=== PATIENT | male | born 1950 | race African-American/Black ===

== ENCOUNTER 2016-09-12 14:38 | Observation (INO) | payer OTHER ==
--- NOTE | 2016-09-12 15:02 | PDOC ---
History of Present Illness - General History Source: Patient Exam Limitations: No Limitations - History of Present Illness Initial Comments: 09/12/16 16:35 The patient is a 67 year old female with a significant past medical history of HTN, vertigo, who presents to the ED s/p syncopal episode. Patient states he was eating before losing consciousness. He then awoke with no confusion and no loss of bladder control. Patient reports feeling well now but has had intermittent lightheadedness over the last week that has felt different from his vertigo. Patient denies fever, nausea, vomiting, diarrhea. Denies chest pain, SOB. Patient has had his dose of lisinopril doubled a month ago. <Tommie Bone - Last Filed: 09/12/16 16:35> <Vijaya Joe - Last Filed: 09/12/16 17:59> - General Stated Complaint: Syncope/Near Syncope Time Seen by Provider: 09/12/16 15:01 Past History <Tommie Bone - Last Filed: 09/12/16 16:35> - Past Medical History Diabetes: Yes HTN: Yes Hypercholesterolemia: Yes Thyroid Disease: Yes (HYPER PARATHYROIDISM) - Psycho/Social/Smoking Cessation Hx Anxiety: No Suicidal Ideation: No Smoking Status: Yes Smoking History: Former smoker Number of Cigarettes Smoked Daily: 0 <Vijaya Joe - Last Filed: 09/12/16 17:59> - Past Medical History Allergies/Adverse Reactions: Allergies Allergy/AdvReac Type Severity Reaction Status Date / Time No Known Allergies Allergy Verified 09/12/16 15:06 Home Medications: Ambulatory Orders Ammonium Lactate Lotion [Lac-Hydrin 12% Lotion -] 1 applic TP ASDIR 09/12/16 Aspirin [ASA -] 81 mg PO DAILY 09/12/16 Carvedilol [Coreg] 6.25 mg PO BID 09/12/16 Cholecalciferol (Vitamin D3) [Vitamin D3] 2 tab PO DAILY 09/12/16 Cinacalcet HCl [Sensipar] 60 mg PO DAILY 09/12/16 Fluticasone Prop 0.05% Nasal [Flonase -] 1 - 2 spray NS BID 09/12/16 Insulin Glargine,Hum.rec.anlog [Lantus Solostar PEN (NF)] 0 units SQ AM Insulin Lispro [Humalog] 20 unit SQ TID 09/12/16 Lisinopril [Prinivil] 20 mg PO DAILY 09/12/16 Meclizine HCl [Antivert -] 25 mg PO TID 09/12/16 Metformin HCl [Metformin HCl ER] 1,000 mg PO BID 09/12/16 Multivit-Min/FA/Lycopen/Lutein [Sentry Senior Multivit Caplet] 1 each PO DAILY 09/12/16 Polyethylene Glycol 3350 [Miralax (For Daily Use) -] 17 gm PO BID 09/12/16 Review of Systems - Review of Systems Able to Perform ROS?: Yes Comments:: 09/12/16 16:35 GENERAL/CONSTITUTIONAL: No fever or chills. No weakness. HEAD, EYES, EARS, NOSE AND THROAT: No change in vision. No ear pain or discharge. No sore throat. CARDIOVASCULAR: No chest pain or shortness of breath. RESPIRATORY: No cough, wheezing, or hemoptysis. GASTROINTESTINAL: No nausea, vomiting, diarrhea or constipation. GENITOURINARY: No dysuria, frequency, or change in urination. MUSCULOSKELETAL: No joint or muscle swelling or pain. No neck or back pain. SKIN: No rash NEUROLOGIC: + syncope. No headache, vertigo, or change in strength/sensation. ENDOCRINE: No increased thirst. No abnormal weight change. HEMATOLOGIC/LYMPHATIC: No anemia, easy bleeding, or history of blood clots. ALLERGIC/IMMUNOLOGIC: No hives or skin allergy. <Tommie Bone - Last Filed: 09/12/16 16:35> *Physical Exam - Vital Signs Last Vital Signs Temp Pulse Resp BP Pulse Ox 98.1 F 79 20 85/59 96 09/12/16 15:02 09/12/16 15:02 09/12/16 15:02 09/12/16 15:02 09/12/16 15:02 - Physical Exam Comments: 09/12/16 16:36 GENERAL: Awake, alert, and fully oriented, in no acute distress HEAD: No signs of trauma EYES: PERRLA, EOMI, sclera anicteric, conjunctiva clear ENT: Auricles normal inspection, hearing grossly normal, nares patent, oropharynx clear without exudates. Moist mucosa NECK: Normal ROM, supple, no lymphadenopathy, JVD, or masses LUNGS: Breath sounds equal, clear to auscultation bilaterally. No wheezes, and no crackles HEART: 85/53 bp. Regular rate and rhythm, normal S1 and S2, no murmurs, rubs or gallops. ABDOMEN: Soft, nontender, normoactive bowel sounds. No guarding, no rebound. No masses EXTREMITIES: Normal range of motion, no edema. No clubbing or cyanosis. No cords, erythema, or tenderness NEUROLOGICAL: Cranial nerves II through XII grossly intact. Normal speech, normal gait SKIN: Warm, Dry, normal turgor, no rashes or lesions noted. <Tommie Bone - Last Filed: 09/12/16 16:35> ED Treatment Course - LABORATORY CBC & Chemistry Diagram: 09/12/16 16:11 09/12/16 16:00 <Tommie Bone - Last Filed: 09/12/16 16:35> - LABORATORY CBC & Chemistry Diagram: 09/12/16 16:11 09/12/16 16:00 <Vijaya Joe - Last Filed: 09/12/16 17:59> Medical Decision Making - Critical Care Time Total Critical Care Time (minutes): 31 Critical Care Statement: The care of this patient involved high complexity decision making to prevent further life threatening deterioration of the patient 's condition and/or to evalute & treat vital organ system(s) failure or risk of failure. - Medical Decision Making 09/12/16 17:37 Pt presents to the ED after syncope. Found to be hypotensive into the 60's on arrival of EMS. In the ED, BP 80's/50's. Patient is awake and oriented and denies complaints except for mild lightheadness. Not tachycardic or febrile. Concern for sepsis. Labs show elevated lactate. Blood pressure improved after IV hydration. Will treat with broad spectrum antibiotics and admit for sepsis. <Vijaya Joe - Last Filed: 09/12/16 17:59> *DC/Admit/Observation/Transfer - Attestations Scribe Attestion: 09/12/16 16:37 Documentation prepared by Tommie Bone, acting as medical research assistant for Vijaya Joe MD, MD. <Tommie Bone - Last Filed: 09/12/16 16:35> <Vijaya Joe - Last Filed: 09/12/16 17:59> - Referrals Referrals: Danielle Luna MD [Primary Care Provider] -
[2016-09-12 15:19] VITALS: BMI 32.5
[2016-09-12 16:54] LABS: BASOPHIL 0.7 % (0-2.0); EOSINOPHIL 1.6 % (0-4.5); MCH 22.5 pg (25.7-33.7); MCHC 30.8 g/dl (32.0-35.9); MEAN CELL VOLUME 73.1 fl (80-96); MEAN PLT VOLUME 8.9 fl (7.5-11.1); NEUTROPHILS 68.8 % (42.8-82.8); RDW 14.9 % (11.9-15.9); WHITE BLOOD COUNT 7.2 K/mm3 (4.0-10.0)
[2016-09-12 17:02] LABS: ALBUMIN 3.7 g/dl (3.4-5.0); ANION GAP 11 (8-16); CALCIUM 9.5 mg/dL (8.5-10.1); CO2 27 mmol/L (21-32); GLUCOSE,RANDOM 108 mg/dL (74-106)
[2016-09-12 17:10] LABS: THYROID STIMULATING HORMONE 1.59 uIU/ml (0.358-3.74)
[2016-09-12 17:15] LABS: ALK PHOS 64 U/L (45-117); BILIRUBIN,TOTAL 0.5 mg/dL (0.2-1.0); COCKROFT - GAULT 57.29; CREATININE 1.9 mg/dL (0.7-1.3); SGOT/AST 17 U/L (15-37); SGPT/ALT 25 U/L (12-78); TOT PROT 7.1 g/dl (6.4-8.2); TROPONIN I < 0.02 ng/ml (0.00-0.05)
[2016-09-12] MEDS ORDERED: VANCOMYCIN 1,000 MG in DEXTROSE 5%-WATER - 250 ML IVPB ONE (17:35)
[2016-09-12] MEDS ORDERED: PIPERACILLIN/TAZOB 3.375 GM 3.375 GM in DEXTROSE 5%-WATER - 50 ML IVPB ONE (17:35)
[2016-09-12] MEDS ORDERED: PIPERACILLIN/TAZOB 3.375 GM 50 ML IVPB ONE (17:45)
[2016-09-12] MEDS ORDERED: VANCOMYCIN 1 GRAM (PRE-DOCKED) 250 ML IVPB ONE (17:46)
[2016-09-12] MEDS ORDERED: SODIUM CHLORIDE 0.9% 1000 ML INFUS.BAG IV ONE (17:53)
[2016-09-12 19:04] LABS: URINE APPEARANCE CLEAR; URINE BILIRUBIN NEGATIVE (NEGATIVE); URINE BLOOD NEGATIVE (NEGATIVE); URINE COLOR YELLOW; URINE GLUCOSE (UA) NEGATIVE (NEGATIVE); URINE KETONE NEGATIVE (NEGATIVE); URINE LEUK ESTERASE NEGATIVE (NEGATIVE); URINE NITRITE NEGATIVE (NEGATIVE); URINE UROBILINOGEN NEGATIVE E.U./dl (0.2-1.0)
[2016-09-12 19:12] LABS: URINE PROTEIN 1+ (NEGATIVE)
[2016-09-12 19:16] LABS: URINE HYALINE CAST 6 /lpf; URINE MUCUS RARE; URINE RBC 1 /hpf (0-3); URINE WBC 2 /hpf (3-5)
[2016-09-12 20:19] LABS: PLATELET COUNT 250 K/MM3 (134-434)
[2016-09-12 20:20] LABS: ANISOCYTOSIS 1+; HYPOCHROMIA OCC; PLATELET ESTIMATE ADEQUATE (NORMAL); POLYCHROMASIA RARE
--- NOTE | 2016-09-12 22:14 | HP ---
Admitting History and Physical - Primary Care Physician PCP: Toby Rogers - Admission History of Present Illness: The patient is a 67 year old female with a significant past medical history of HTN, vertigo, who presents to the ED s/p syncopal episode. Patient states he was eating before losing consciousness. He then awoke with no confusion and no loss of bladder control. Patient reports feeling well now but has had intermittent lightheadedness over the last week that has felt different from his vertigo. 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 Cardiovascular: Yes: HTN - Smoking History Smoking history: Former smoker Have you smoked in the past 12 months: No Aproximately how many cigarettes per day: 0 - Alcohol/Substance Use Hx Alcohol Use: No Home Medications - Allergies Allergies/Adverse Reactions: Allergies Allergy/AdvReac Type Severity Reaction Status Date / Time No Known Allergies Allergy Verified 09/12/16 15:06 - Home Medications Home Medications: Ambulatory Orders Ammonium Lactate Lotion [Lac-Hydrin 12] 1 applic TP ASDIR 09/12/16 Aspirin [ASA -] 81 mg PO DAILY 09/12/16 Carvedilol [Coreg] 6.25 mg PO BID 09/12/16 Cholecalciferol (Vitamin D3) [Vitamin D3] 2 tab PO DAILY 09/12/16 Cinacalcet HCl [Sensipar] 60 mg PO DAILY 09/12/16 Fluticasone Prop 0.05% Nasal [Flonase -] 1 - 2 spray NS BID 09/12/16 Insulin Glargine,Hum.rec.anlog [Lantus Solostar PEN -] 55 units SQ AM 09/12/16 Insulin Lispro [Humalog Kwikpen U-100] 20 unit SQ TID 09/12/16 Lisinopril [Prinivil] 20 mg PO DAILY 09/12/16 Meclizine HCl [Antivert -] 25 mg PO TID 09/12/16 Metformin HCl [Metformin HCl ER] 1,000 mg PO BID 09/12/16 Multivit-Min/FA/Lycopen/Lutein [Sentry Senior Multivit Caplet] 1 each PO DAILY 09/12/16 Polyethylene Glycol 3350 [Miralax 119 gm Btl -] 17 gm PO BID 09/12/16 Review of Systems - Review of Systems Constitutional: denies: No Symptoms, Chills, Diaphoresis, Fever, Lethargy, Loss of Appetite, Malaise, Night Sweats, Unintentional Wgt. Loss, Weakness, Other Eyes: denies: No Symptoms, Blind Spots, Blurred Vision, Double Vision, Eye Pain , Floaters, Photophobia, Recent Change in Vision, Other HENT: denies: No Symptoms, Difficult Swallowing, Ear Discharge, Ear Pain, Epistaxis, Gingival Bleeding, Hearing Loss, Mouth Swelling, Nasal Congestion, Ocular Prosthesis, Throat Pain, Toothache, Ringing in Ears, Other Neck: denies: No Symptoms, Decreased ROM, Lumps, Pain on Movement, Stiffness, Swollen Glands, Tenderness, Other Cardiovascular: denies: No Symptoms, Chest Pain, Edema, Palpitations, Shortness of Breath, Other Respiratory: denies: No Symptoms, Cough, Exercise Intolerance, Hemoptysis, Orthopnea, PND, Snoring, SOB, SOB on Exertion, Wheezing, Other Gastrointestinal: denies: No Symptoms, Abdominal Pain, Bloating, Constipation, Diarrhea, Dysphagia, Indigestion, Melena, Nausea, Rectal Bleeding, Vomiting, Vomiting Blood, Other Genitourinary: denies: No Symptoms, Burning, Discharge, Dysuria, Flank Pain, Frequency, Hematuria, Incontinence, Lesions, Menses, Pain, Testicular Mass, Testicular Pain, Testicular Swelling, Urgency, Vaginal Bleeding, Other Neurological: reports: Syncope Physical Examination Vital Signs: Vital Signs Temperature 98.1 F 09/12/16 15:02 Pulse Rate 76 09/12/16 21:30 Respiratory Rate 18 09/12/16 21:30 Blood Pressure 112/64 09/12/16 21:30 O2 Sat by Pulse Oximetry (%) 96 09/12/16 21:30 Constitutional: Yes: No Distress HENT: Yes: Atraumatic Neck: Yes: Supple Cardiovascular: Yes: Regular Rate and Rhythm Respiratory: Yes: CTA Bilaterally Gastrointestinal: Yes: Normal Bowel Sounds Extremities: Yes: WNL Neurological: Yes: Alert, Oriented Problem List - Problems (1) Syncope Assessment/Plan: doing well monitor on tele cardiology consult cradiac profile and troponin Code(s): R55 - SYNCOPE AND COLLAPSE (2) Peripheral vertigo Assessment/Plan: on meclizine going on for sometime as per patient Code(s): H81.399 - OTHER PERIPHERAL VERTIGO, UNSPECIFIED EAR (3) Diabetes Assessment/Plan: bgms insulin Code(s): E11.9 - TYPE 2 DIABETES MELLITUS WITHOUT COMPLICATIONS (4) HTN (hypertension) Assessment/Plan: on meds Code(s): I10 - ESSENTIAL (PRIMARY) HYPERTENSION Assessment/Plan Laboratory Tests 09/12/16 09/12/16 09/12/16 16:00 16:00 16:00 WBC RBC Hgb Hct MCV MCHC RDW Plt Count MPV Neutrophils % Lymphocytes % Monocytes % Eosinophils % Basophils % Differential Comment Platelet Estimate Polychromasia Hypochromic-Microcytic Anisocytosis Macrocytosis Sodium 139 Potassium 4.6 Chloride 101 Carbon Dioxide 27 Anion Gap 11 BUN 21 H D Creatinine 1.9 H D Creat Clearance w eGFR 35.43 Random Glucose 108 H D Lactic Acid 4.6 H* Calcium 9.5 Total Bilirubin 0.5 AST 17 ALT 25 Alkaline Phosphatase 64 Creatine Kinase 469 H D Creatine Kinase Index 0.9 CK-MB (CK-2) 4.334 H CK-MB (CK-2) Rel Index Cancelled Troponin I < 0.02 Total Protein 7.1 Albumin 3.7 TSH 1.59 Urine Color Urine Appearance Urine pH Urine Protein Urine Glucose (UA) Urine Ketones Urine Blood Urine Nitrite Urine Bilirubin Urine Urobilinogen Ur Leukocyte Esterase Urine RBC Urine WBC Ur Epithelial Cells Hyaline Casts Urine Mucus 09/12/16 09/12/16 09/12/16 16:11 19:09 20:13 WBC 7.2 RBC 5.22 Hgb 11.7 Hct 38.1 MCV 73.1 L MCHC 30.8 L RDW 14.9 Plt Count 250 D MPV 8.9 D Neutrophils % 68.8 D Lymphocytes % 20.0 D Monocytes % 8.9 Eosinophils % 1.6 Basophils % 0.7 Differential Comment Slide scanned Platelet Estimate Adequate Polychromasia Rare Hypochromic-Microcytic Occ Anisocytosis 1+ Macrocytosis Occ Sodium Potassium Chloride Carbon Dioxide Anion Gap BUN Creatinine Creat Clearance w eGFR Random Glucose Lactic Acid 2.7 H* Calcium Total Bilirubin AST ALT Alkaline Phosphatase Creatine Kinase Creatine Kinase Index CK-MB (CK-2) CK-MB (CK-2) Rel Index Troponin I Total Protein Albumin TSH Urine Color Yellow Urine Appearance Clear Urine pH 5.0 Urine Protein 1+ H Urine Glucose (UA) Negative Urine Ketones Negative Urine Blood Negative Urine Nitrite Negative Urine Bilirubin Negative Urine Urobilinogen Negative Ur Leukocyte Esterase Negative Urine RBC 1 Urine WBC 2 Ur Epithelial Cells Rare Hyaline Casts 6 Urine Mucus Rare
[2016-09-12 23:38] LABS: TROPONIN I < 0.02 ng/ml (0.00-0.05)
[2016-09-13 07:46] LABS: BASOPHIL 0.7 % (0-2.0); EOSINOPHIL 3.1 % (0-4.5); MCH 22.8 pg (25.7-33.7); MCHC 31.5 g/dl (32.0-35.9); MEAN CELL VOLUME 72.4 fl (80-96); NEUTROPHILS 56.8 % (42.8-82.8); PLATELET COUNT 235 K/MM3 (134-434); RDW 15.2 % (11.9-15.9); WHITE BLOOD COUNT 6.1 K/mm3 (4.0-10.0)
[2016-09-13 08:08] LABS: ALBUMIN 3.4 g/dl (3.4-5.0); CALCIUM 9.3 mg/dL (8.5-10.1)
[2016-09-13 08:12] LABS: BILIRUBIN,TOTAL 0.6 mg/dL (0.2-1.0); COCKROFT - GAULT 72.57; CREATININE 1.5 mg/dL (0.7-1.3); TOT PROT 6.8 g/dl (6.4-8.2); TROPONIN I < 0.02 ng/ml (0.00-0.05)
--- NOTE | 2016-09-13 09:23 | PN ---
Progress Note (short form) - Note Progress Note: Chief Complaint: Events noted, notes reviewed, syncope preceded by hypoglycemia , profuse diaphoresis and nausea, denies any chest pain or dyspnea History of Present Illness: Seen and examined on telemetry. Full consult dictated - Current Medication List Current Medications Aspirin (Asa -) 81 mg PO DAILY GEORGINA Carvedilol (Coreg -) 6.25 mg PO BID GEORGINA Review of Systems Cardiovascular: As noted above Respiratory: denies: Cough or Sputum Production Gastrointestinal: denies: Vomiting, Diarrhea, Constipation or Abdominal Discomfort Musculoskeletal: No Symptoms Reported Endocrine: Diabetes Mellitus - Objective Vital Signs: Last Vital Signs Temp Pulse Resp BP Pulse Ox 98.1 F 72 20 137/94 100 09/13/16 08:08 09/13/16 08:08 09/13/16 08:08 09/13/16 08:08 09/12/16 22:14 HEENT: ROZ, EOMI Unicteric Sclera Neck: Supple Negative JVD Cardiovascular: S1 S2 Regular Rate and Rhythm Grade 1-2/6 STEFFEN Respiratory: Clear to A&P Gastrointestinal: Soft Benign Normal Bowel Sounds Ext: Negative Edema Intact Distal Pulses Labs: Troponin, BNP 09/12/16 09/12/16 09/13/16 16:00 22:40 05:38 Troponin I < 0.02 < 0.02 < 0.02 CBC, BMP 09/13/16 05:38 09/13/16 05:38 Hepatic Panel Total Bilirubin 0.6 mg/dL (0.2-1.0) 09/13/16 05:38 AST 18 U/L (15-37) 09/13/16 05:38 ALT 25 U/L (12-78) 09/13/16 05:38 Alkaline Phosphatase 64 U/L (45-117) 09/13/16 05:38 Albumin 3.4 g/dl (3.4-5.0) 09/13/16 05:38 Assessment/Plan ASSESSMENT: 1. Clinical presentation is consistent with vaso-vagal syncope, unlikely to be neuro-cardiogenic syncope 2. CAD angina pectoris 3. Diastolic LV dysfunction with class 0-I NYHA classification LV failure 4. HTN 5. DM 6. Hypercholesterolemia 7. History of Hyperparathyroidism 8. CKD with Hyperkalemia 9. History of benign positional vertigo PLAN: 1. Continue Coreg 2. Resume Lisinopril with caution and close monitoring of renal function 3. Continue ASA 4. Echocardiography to evaluate LV function, if LV EF is normal additional testing can be performed as outpatient including MPI study Katalina Valdez MD
[2016-09-13] MEDS: CARVEDILOL 6.25 MG TABLET (FP) PO SCH ×2 (10:24→21:38)
[2016-09-13] MEDS: ASPIRIN 81 MG CHEWABLE TABLETS PO SCH (10:24)
--- NOTE | 2016-09-13 11:46 | EKG ---
Test Reason : Blood Pressure : / mmHG Vent. Rate : 076 BPM Atrial Rate : 076 BPM P-R Int : 178 ms QRS Dur : 088 ms QT Int : 362 ms P-R-T Axes : 031 -29 006 degrees QTc Int : 407 ms NORMAL SINUS RHYTHM MINIMAL VOLTAGE CRITERIA FOR LVH, MAY BE NORMAL VARIANT BORDERLINE ECG WHEN COMPARED WITH ECG OF 23-JUN-2012 17:25, NO SIGNIFICANT CHANGE WAS FOUND Confirmed by NURIA VILLALBA, JASON ([id number]) on 09/13/2016 11:46:27 AM Referred By: Confirmed By:JASON QUIÑONES MD
--- NOTE | 2016-09-13 16:34 | CONS ---
DATE OF CONSULTATION: 09/13/2016 CONSULTATION REQUESTED BY: Leonard Rogers MD CHIEF COMPLAINT: Syncopal episode, cardiovascular evaluation. A 66-year-old obese male of descent, with known history of coronary artery disease, angina pectoris, diastolic left ventricular dysfunction with class 0 [place] Heart Association classification left ventricular failure, hypertensive cardiovascular disease, diabetes mellitus, hypercholesterolemia, hyperparathyroidism, post parathyroid gland resection, who presented to [facility] with a syncopal episode. Patient stated that he was hypoglycemic, and upon ingestion of 2 glasses or orange juice, he developed transient nausea with profuse diaphoresis and subsequently he lost consciousness. Patient did not report any preceding palpitations. Patient does not report any prior history of cardiac arrhythmia or syncope. Patient denies any recent chest discomfort. Patient denies any dyspnea, orthopnea, paroxysmal nocturnal dyspnea, or peripheral edema. Patient denies any fatigue or tiredness. PAST MEDICAL HISTORY: Coronary artery disease, angina pectoris, diastolic left ventricular dysfunction with class 0 [place] Heart Association classification left ventricular failure, hypertensive cardiovascular disease, diabetes mellitus, hypercholesterolemia, hyperparathyroidism, post parathyroid gland resection, orthopedic procedures post fall/trauma. SOCIAL HISTORY: Prior history of tobacco abuse. FAMILY HISTORY: Positive coronary artery disease. ALLERGIES: None reported. MEDICAL THERAPY: Magnesium citrate, insulin, lisinopril 20 mg once a day, Sensipar 600 mg once a day, multivitamin 1 tablet once a day, Ecotrin 81 mg once a day, Coreg 6.25 mg twice a day, vitamin D 2000 international units once a day, Flonase 1 puff in each nostril twice a day, meclizine 25 mg 3 times a day as needed for benign positional vertigo, metformin 1000 mg twice a day, MiraLax 17 g once a day as needed. REVIEW OF SYSTEMS: Head and Neck: Denies headache, photophobia, blurring of vision. Respiratory: No cough or sputum production. Cardiovascular: As noted above. Gastrointestinal: Reported transient nausea. Denied vomiting, diarrhea, constipation, or abdominal discomfort. Musculoskeletal: No symptoms reported. Genitourinary: No symptoms reported. PHYSICAL EXAMINATION: Vital Signs: Blood pressure is 137/94 mmHg. Pulse rate is 72 beats per minute. Temperature 98.1. Head and Neck: Pupils equal, react to light and accommodation. Extraocular muscles intact. Anicteric sclerae. Negative JVD. No bruit appreciated. Chest: Clear to auscultation and percussion. Cardiovascular: S1, S2 regular. Grade 1 to 2/6 systolic ejection murmur. No clicks or gallops. Abdomen: Soft, benign. Normoactive bowel sound. Extremities: Negative edema. Intact distal pulses. No calf tenderness. Electrocardiogram reveals sinus rhythm with increased voltage, minor right-sided conduction delay with early transition, and nonspecific T-wave abnormality. CPK, troponin I level were noted. CBC reveals a white cell count of 6.1, hemoglobin of 12.3, platelet count 235. Basic metabolic profile revealed sodium 141, potassium 5.2, BUN 20, creatinine 1.5, glucose 102. ASSESSMENT: 1. Clinical presentation is consistent with vasovagal syncope, unlikely to be neurocardiogenic syncope. 2. Coronary artery disease, angina pectoris, stable. 3. Diastolic left ventricular dysfunction with chronic class 0 to 1 [place] Heart Association classification left ventricular failure. 4. Hypertensive cardiovascular disease. 5. Diabetes mellitus. 6. Hypercholesterolemia. 7. History of hyperparathyroidism. 8. Chronic kidney disease with hyperkalemia. 9. History of benign positional vertigo. PLAN: 1. Continuation of Coreg. 2. Resumption of lisinopril with caution and close monitoring of renal function. 3. Continuation of aspirin. 4. Echocardiography for evaluation of left ventricular size and function, and if LVEF is normal, additional testing can be performed outpatient basis including myocardial perfusion imaging study. Thank you for the kind referral. JASON QUIÑONES M.D. [id number]
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
--- NOTE | 2016-09-13 18:43 | DS ---
Physical Examination Vital Signs: Vital Signs Temperature 97.8 F 09/13/16 15:09 Pulse Rate 70 09/13/16 15:09 Respiratory Rate 18 09/13/16 15:09 Blood Pressure 128/92 09/13/16 15:09 O2 Sat by Pulse Oximetry (%) 100 09/13/16 08:00 Constitutional: Yes: No Distress HENT: Yes: Atraumatic Neck: Yes: Supple Cardiovascular: Yes: Regular Rate and Rhythm Respiratory: Yes: CTA Bilaterally Gastrointestinal: Yes: Normal Bowel Sounds Extremities: Yes: WNL Neurological: Yes: Alert, Oriented Labs: CBC, BMP 09/13/16 05:38 09/13/16 05:38 Discharge Summary Reason For Visit: Syncope Current Active Problems Diabetes (Acute) HTN (hypertension) (Acute) Peripheral vertigo (Acute) Syncope (Acute) - Instructions Diet, Activity, Other Instructions: see nerologist as out pt Referrals: Katalina Valdez MD [Staff Physician] - Phillip Shah DO [Staff Physician] - Danielle Luna MD [Primary Care Provider] - - Home Medications Comprehensive Discharge Medication List: Ambulatory Orders Ammonium Lactate Lotion [Lac-Hydrin 12] 1 applic TP ASDIR 09/12/16 Aspirin [ASA -] 81 mg PO DAILY 09/12/16 Carvedilol [Coreg] 6.25 mg PO BID 09/12/16 Cholecalciferol (Vitamin D3) [Vitamin D3] 2 tab PO DAILY 09/12/16 Cinacalcet HCl [Sensipar] 60 mg PO DAILY 09/12/16 Fluticasone Prop 0.05% Nasal [Flonase -] 1 - 2 spray NS BID 09/12/16 Insulin Glargine,Hum.rec.anlog [Lantus Solostar PEN -] 55 units SQ AM 09/12/16 Insulin Lispro [Humalog Kwikpen U-100] 20 unit SQ TID 09/12/16 Lisinopril [Prinivil] 20 mg PO DAILY 09/12/16 Meclizine HCl [Antivert -] 25 mg PO TID 09/12/16 Metformin HCl [Metformin HCl ER] 1,000 mg PO BID 09/12/16 Multivit-Min/FA/Lycopen/Lutein [Sentry Senior Multivit Caplet] 1 each PO DAILY 09/12/16 Polyethylene Glycol 3350 [Miralax 119 gm Btl -] 17 gm PO BID 09/12/16 dc home fu pmd, cardiology, neuro as out pt
[2016-09-13] MEDS: LISINOPRIL 10 MG TABLET (FP) PO SCH (22:08)
[2016-09-13 22:31] LABS: TROPONIN I < 0.02 ng/ml (0.00-0.05)
[2016-09-14] MEDS ORDERED: LISINOPRIL 10 MG TABLET (FP) PO PRN ×2 (00:19)
[2016-09-14 08:56] LABS: MCH 22.7 pg (25.7-33.7); MCHC 31.4 g/dl (32.0-35.9); MEAN CELL VOLUME 72.1 fl (80-96); MEAN PLT VOLUME 8.5 fl (7.5-11.1); PLATELET COUNT 240 K/MM3 (134-434); WHITE BLOOD COUNT 5.4 K/mm3 (4.0-10.0)
[2016-09-14 09:03] VITALS: BP 134/89; PULSE 82; TEMP 98.1
[2016-09-14 09:20] LABS: ALBUMIN 3.5 g/dl (3.4-5.0); CALCIUM 9.9 mg/dL (8.5-10.1); COCKROFT - GAULT 84.9; CREATININE 1.3 mg/dL (0.7-1.3)
[2016-09-14 09:22] LABS: BILIRUBIN,TOTAL 0.5 mg/dL (0.2-1.0)
[2016-09-14] MEDS: LISINOPRIL 10 MG TABLET (FP) PO SCH (10:00)
[2016-09-14] MEDS: ASPIRIN 81 MG CHEWABLE TABLETS PO SCH (10:01)
[2016-09-14] MEDS: CARVEDILOL 6.25 MG TABLET (FP) PO SCH (10:01)
--- NOTE | 2016-09-14 11:49 | PN ---
Progress Note, Physician History of Present Illness: No further near or true syncope. - Current Medication List Current Medications: Active Medications Aspirin (Asa -) 81 mg PO DAILY [facility] Last Admin: 09/14/16 10:01 Dose: 81 mg Carvedilol (Coreg -) 6.25 mg PO BID [facility] Last Admin: 09/14/16 10:01 Dose: 6.25 mg Lisinopril (Prinivil) 10 mg PO DAILY [facility] Last Admin: 09/14/16 10:00 Dose: 10 mg - Objective Vital Signs: Vital Signs Temperature 98.1 F 09/14/16 08:59 Pulse Rate 82 09/14/16 08:59 Respiratory Rate 20 09/14/16 08:59 Blood Pressure 134/89 09/14/16 08:59 O2 Sat by Pulse Oximetry (%) 100 09/14/16 08:59 Constitutional: Yes: No Distress, Calm Neck: Yes: Supple Cardiovascular: Yes: Regular Rate and Rhythm Respiratory: Yes: Regular, CTA Bilaterally Gastrointestinal: Yes: Normal Bowel Sounds, Soft Edema: No Labs: CBC, BMP 09/14/16 08:30 09/14/16 08:30 - ....Imaging EKG: Report Reviewed (Tele: SR no pauses) Problem List - Problems (1) Diabetes Code(s): E11.9 - TYPE 2 DIABETES MELLITUS WITHOUT COMPLICATIONS Qualifiers: Diabetes mellitus type: type 2 Chronic kidney disease stage: stage 2 ( mild) (2) HTN (hypertension) Code(s): I10 - ESSENTIAL (PRIMARY) HYPERTENSION Qualifiers: Hypertension type: essential hypertension Qualified Code(s): I10 - Essential (primary) hypertension (3) Syncope Code(s): R55 - SYNCOPE AND COLLAPSE Qualifiers: Syncope type: vasovagal syncope Qualified Code(s): R55 - Syncope and collapse (4) Diastolic dysfunction Code(s): I51.9 - HEART DISEASE, UNSPECIFIED Assessment/Plan 09/13/2016 Echo: Normal LV size and fxn, mild TR, abnl LV compliance, RVSP 40-50 mmHg 1. Clinical presentation is consistent with vasovagal syncope 2. CAD angina pectoris 3. Diastolic LV dysfunction with class 0-I NYHA classification LV failure 4. HTN 5. DM 6. Hypercholesterolemia 7. History of Hyperparathyroidism 8. Acute on CKD with Hyperkalemia improving 9. History of benign positional vertigo PLAN: 1. Continue Coreg 6.25 bid, Lisinopril 10 qd and ASA 81 qd 2. May be d/siddhartha with additional testing to be performed as outpatient including MPI study
--- NOTE | 2016-09-14 14:31 | DS ---
Physical Examination Vital Signs: Vital Signs Temperature 98.1 F 09/14/16 08:59 Pulse Rate 82 09/14/16 08:59 Respiratory Rate 20 09/14/16 08:59 Blood Pressure 134/89 09/14/16 08:59 O2 Sat by Pulse Oximetry (%) 100 09/14/16 08:59 Labs: CBC, BMP 09/14/16 08:30 09/14/16 08:30 Discharge Summary Reason For Visit: Syncope Current Active Problems Diabetes (Acute) Diastolic dysfunction (Acute) HTN (hypertension) (Acute) Peripheral vertigo (Acute) Syncope (Acute) - Instructions Diet, Activity, Other Instructions: see neurologist as out pt monitor renal function see logistics technician will hold home Referrals: Katalina Valdez MD [Staff Physician] - Phillip Shah DO [Staff Physician] - Danielle Luna MD [Primary Care Provider] - Disposition: ASSISTED LIVING FACILITY - Home Medications Comprehensive Discharge Medication List: Ambulatory Orders Ammonium Lactate Lotion [Lac-Hydrin 12] 1 applic TP ASDIR 09/12/16 Aspirin [ASA -] 81 mg PO DAILY 09/12/16 Carvedilol [Coreg] 6.25 mg PO BID 09/12/16 Cholecalciferol (Vitamin D3) [Vitamin D3] 2 tab PO DAILY 09/12/16 Cinacalcet HCl [Sensipar] 60 mg PO DAILY 09/12/16 Fluticasone Prop 0.05% Nasal [Flonase -] 1 - 2 spray NS BID 09/12/16 Insulin Glargine,Hum.rec.anlog [Lantus Solostar PEN -] 55 units SQ AM 09/12/16 Insulin Lispro [Humalog Kwikpen U-100] 20 unit SQ TID 09/12/16 Meclizine HCl [Antivert -] 25 mg PO TID 09/12/16 Metformin HCl [Metformin HCl ER] 1,000 mg PO BID 09/12/16 Multivit-Min/FA/Lycopen/Lutein [Sent Senior Multivit Caplet] 1 each PO DAILY 09/12/16 Polyethylene Glycol 3350 [Miralax 119 gm Btl -] 17 gm PO BID 09/12/16 lisinopril 10 mg po daily
== END 2016-09-14 11:55 ==
LOC: JER 14:38 → JERBED 20:08 → INTOOBSV 20:08 → UNDOADMOB 20:08 → J4W 21:46 → JERBED 21:46 → EDBD 22:14 → J4W 22:14
PROVIDERS: ADMIT Internal Medicine; ATTEND Internal Medicine
DX: R55 Syncope and collapse (principal); H81.399 Other peripheral vertigo, unspecified ear; E11.9 Type 2 diabetes mellitus without complications; I10 Essential (primary) hypertension; Z79.4 Long term (current) use of insulin; Z79.82 Long term (current) use of aspirin; Z79.84 Long term (current) use of oral hypoglycemic drugs; Z87.891 Personal history of nicotine dependence; I25.119 Atherosclerotic heart disease of native coronary artery with unspecified angina pectoris; E78.00 Pure hypercholesterolemia, unspecified; I51.9 Heart disease, unspecified
CPT/HCPCS: 36415; 71010-TC; 80053; 81003; 81015; 82550; 82553; 83605; 84443; 84484; 85025; 85027; 87040; 87086; 93005; 93010; 93306-TC; 99285-25; G0378

== ENCOUNTER 2018-11-01 23:28 | Inpatient (IN) | payer OTHER ==
--- NOTE | 2018-11-02 00:25 | PDOC ---
Documentation entered by Donna Ornelas SCRIBE, acting as scribe for Karina Sifuentes DO. Karina Sifuentes DO: This documentation has been prepared by the Johnson handley Adrianna, SCRIBE, under my direction and personally reviewed by me in its entirety. I confirm that the documentation accurately reflects all work, treatment, procedures, and medical decision making performed by me. Attending Attestation - Resident Resident Name: YasminemannieMarv - ED Attending Attestation I have performed the following: I have examined & evaluated the patient, The case was reviewed & discussed with the resident, I agree w/resident's findings & plan, Exceptions are as noted - HPI HPI: The patient is a 68 year old male, with a significant PMH of DM, HTN, vertigo, HLD, hyperparathyroid, and CVD, who presents to the ED BIBEMS from the [facility] for evaluation s/p fall. As per Residential note, patient fell earlier today. Patient denies falling, but admits to drinking 5 beers and 4 shots earlier today. He reports that he was arguing with the people at his home and they saw that his BP was low so they brought him here. Patient has no complaints while in the ED. Denies pain, headache, blurry vision, changes in vision, changes in sensation, numbness or tingling. Allergies: Zocor Surgical History: Thyroidectomy Social History: PCP: Dr. Simmons - Physicial Exam PE: Constitutional: Awake, alert, oriented. No acute distress. Head: Normocephalic. Atraumatic. Eyes: PERRL. EOMI. Conjunctivae are not pale. ENT: Mucous membranes are moist and intact. Posterior pharynx without exudates or erythema. Uvula midline. Neck: Supple. Full ROM. No lymphadenopathy. Cardiovascular: Regular rate. Regular rhythm. S1, S2 regular. Distal pulses are 2+ and symmetric. Pulmonary/Chest: No evidence of respiratory distress. Clear to auscultation bilaterally No wheezing, rales or rhonchi. Abdominal: Soft and nondistended. There is no tenderness. No rebound, guarding or rigidity. No organomegaly. No palpable masses. Good bowel sounds. Back: No CVA tenderness. Musculoskeletal: No edema. No cyanosis. No clubbing. Full range of motion in all extremities. No calf tenderness. Radial/pedal pulses are intact and 2+ bilaterally Skin: Skin is warm and dry. No petechiae. No purpura. Neurological: Alert and oriented to person, place, and time. Cranial nerves II -XII are grossly intact. Normal speech. Strength is grossly symmetric. No sensory deficits. Psychiatric: Good eye contact. Normal interaction, affect and behavior. - Medical Decision Making 11/02/18 00:21 I, Dr. Karina Sifuentes, DO, attest that this document has been prepared under my direction and personally reviewed by me in its entirety. I further attest, that it accurately reflects all work, treatment, procedures and medical decision -making performed by me. 11/02/18 00:22 a/p: 68yo male sent in from his [facility] for eval of etoh use and poss fall -pt denies falling, but admits to etoh use -no external signs of trauma -pt denies all complaints of pain -neuro intact -will send labs, head ct for poss fall on etoh, ekg -most likely dc back to [facility] 11/02/18 01:[address] neg hypercalcemia [place] etoh intox pmd dr. simmons will need admission 11/02/18 01:24 tortuous aorta no acute pna on cxr 11/02/18 01:27 pt updated and willing to stay for further eval 11/02/18 01:[address] marquez who accepts pt to service under Faye Burks *DC/Admit/Observation/Transfer Diagnosis at time of Disposition: Hypercalcemia, [place] (acute kidney injury), Alcohol intoxication - Discharge Dispostion Condition at time of disposition: Guarded Decision to Admit order: Yes - Referrals - Patient Instructions - Post Discharge Activity Heart Score/ECG Review - ECG Intrepretation Comment:: 11/02/18 00:35 sinus at 88, nl axis, nl interval, no acute st findings, t wave flattening diffusely ED Treatment Course - LABORATORY CBC & Chemistry Diagram: 11/02/18 00:30 11/02/18 00:30 - ADDITIONAL ORDERS Additional order review: Laboratory Results 11/02/18 11/02/18 11/02/18 00:30 00:30 00:30 PTT (Actin FS) Sodium 134 L Potassium 5.1 Chloride 103 Carbon Dioxide 20 L Anion Gap 11 BUN 44.0 H Creatinine 3.0 H Est GFR (CKD-EPI)AfAm 23.48 Est GFR (CKD-EPI)NonAf 20.26 Random Glucose 171 H Calcium 11.5 H Total Bilirubin 0.3 AST 20 ALT 29 Alkaline Phosphatase 60 Creatine Kinase 527 H Troponin I < 0.02 Total Protein 7.5 Albumin 4.1 Alcohol, Quantitative 184.3 H 11/02/18 00:30 PTT (Actin FS) 34.6 Sodium Potassium Chloride Carbon Dioxide Anion Gap BUN Creatinine Est GFR (CKD-EPI)AfAm Est GFR (CKD-EPI)NonAf Random Glucose Calcium Total Bilirubin AST ALT Alkaline Phosphatase Creatine Kinase Troponin I Total Protein Albumin Alcohol, Quantitative 11/02/18 00:30 RBC 5.00 MCV 71.9 L MCHC 32.5 RDW 15.9 MPV 9.0 Neutrophils % 64.8 Lymphocytes % 25.9 Monocytes % 7.0 Eosinophils % 1.9 Basophils % 0.4 - RADIOLOGY Radiograph Interpretation: EXAM: HEAD CT WITHOUT CONTRAST HISTORY: Headache FINDINGS: 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 No visible acute infarct. Involutional changes. No hemorrhage. Osseous structures are intact. Retention cysts/polyps in the maxillary sinuses. Reported by: Ravinder Smith MD 11/02/2018 01:09 EST
[2018-11-02 00:51] LABS: BASO % 0.4 % (0-2.0); EOS % 1.9 % (0-4.5); HEMOGLOBIN 11.7 GM/dL (11.7-16.9); LYMPH % 25.9 % (8-40); MCH 23.3 pg (25.7-33.7); MCHC 32.5 g/dl (32.0-35.9); MEAN CELL VOLUME 71.9 fl (80-96); NEUT % 64.8 % (42.8-82.8); PLATELET COUNT 200 K/MM3 (134-434); RDW 15.9 % (11.9-15.9); WHITE BLOOD COUNT 7.1 K/mm3 (4.0-10.0)
--- NOTE | 2018-11-02 00:52 | PDOC ---
History of Present Illness - General Chief Complaint: Injury Stated Complaint: INTOX Time Seen by Provider: 11/01/18 23:54 History Source: Patient Exam Limitations: No Limitations Past History - Past Medical History Allergies/Adverse Reactions: Allergies Allergy/AdvReac Type Severity Reaction Status Date / Time No Known Allergies Allergy Verified 09/12/16 15:06 Home Medications: Ambulatory Orders Ammonium Lactate Lotion [Lac-Hydrin 12] 1 applic TP ASDIR 09/12/16 Aspirin [ASA -] 81 mg PO DAILY 09/12/16 Carvedilol [Coreg] 6.25 mg PO BID 09/12/16 Cholecalciferol (Vitamin D3) [Vitamin D3] 2 tab PO DAILY 09/12/16 Cinacalcet HCl [Sensipar] 60 mg PO DAILY 09/12/16 Fluticasone Prop 0.05% Nasal [Flonase -] 1 - 2 spray NS BID 09/12/16 Insulin Glargine,Hum.rec.anlog [Lantus Solostar PEN -] 55 units SQ AM 09/12/16 Insulin Lispro [Humalog Kwikpen U-100] 20 unit SQ TID 09/12/16 Meclizine HCl [Antivert -] 25 mg PO TID 09/12/16 Multivit-Min/FA/Lycopen/Lutein [Sentry Senior Multivit Caplet] 1 each PO DAILY 09/12/16 Polyethylene Glycol 3350 [Miralax 119 gm Btl -] 17 gm PO BID 09/12/16 metFORMIN HCL [Metformin ER Osmotic] 1,000 mg PO BID 09/12/16 Lisinopril 10 mg PO DAILY #30 tablet 09/14/16 Anemia: No CVA: Yes Diabetes: Yes HTN: Yes Hypercholesterolemia: Yes Thyroid Disease: Yes (HYPER PARATHYROIDISM) - Suicide/Smoking/Psychosocial Hx Smoking Status: Yes Smoking History: Unknown if ever smoked Have you smoked in the past 12 months: No Number of Cigarettes Smoked Daily: 0 If you are a former smoker, when did you quit?: years Cigars Per Day: 0 Information on smoking cessation initiated: No Hx Alcohol Use: Yes Drug/Substance Use Hx: No (unknown) Substance Use Type: None *Physical Exam - Vital Signs Last Vital Signs Temp Pulse Resp BP Pulse Ox 97.8 F 87 18 93/66 97 11/01/18 23:46 11/02/18 00:29 11/02/18 00:29 11/02/18 00:29 11/01/18 23:46 ED Treatment Course - LABORATORY CBC & Chemistry Diagram: 11/02/18 00:30 11/02/18 00:30
[2018-11-02 01:12] LABS: ALBUMIN 4.1 g/dl (3.4-5.0); BILIRUBIN,TOTAL 0.3 mg/dL (0.2-1); CALCIUM 11.5 mg/dL (8.5-10.1); POTASSIUM 5.1 mmol/L (3.5-5.1); TOT PROT 7.5 g/dl (6.4-8.2)
[2018-11-02 01:17] LABS: INR 1.04 (0.83-1.09); PROTHROMBIN TIME (PATIENT) 12.3 SEC (9.7-13.0)
[2018-11-02] MEDS ORDERED: SODIUM CHLORIDE 0.9% 1000 ML INFUS.BAG IV ONE (01:20)
[2018-11-02] MEDS ORDERED: THIAMINE HCL 100 MG TABLET (FP) PO ONE (01:21)
[2018-11-02] MEDS ORDERED: FOLIC ACID 1 MG TABLET (FP) PO ONE (01:21)
--- NOTE | 2018-11-02 01:43 | HP ---
CHIEF COMPLAINT: fall PCP: [place] HISTORY OF PRESENT ILLNESS: 68 year old male BIBEMS from the [facility] for evaluation s/p fall on 11/01. Patient was found to be intoxicated in ER, stated that EMS was summoned, found that his BP was low and was brought in. ER course was notable for: (1) cxr (2) head ct (3) Recent Travel: no PAST MEDICAL HISTORY:DM, HTN, vertigo, HLD, hyperparathyroidism PAST SURGICAL HISTORY: Thyroidectomy Social History: Smoking: quit -2008 Alcohol: yes- social, denied chronic Drugs: denied Family History: Allergies No Known Allergies Allergy (Verified 09/12/16 15:06) HOME MEDICATIONS: Home Medications Medication Instructions Recorded Ammonium Lactate Lotion 1 applic TP ASDIR 09/12/16 [Lac-Hydrin 12] Aspirin [ASA -] 81 mg PO DAILY 09/12/16 Carvedilol [Coreg] 6.25 mg PO BID 09/12/16 Cholecalciferol (Vitamin D3) 2 tab PO DAILY 09/12/16 [Vitamin D3] Cinacalcet HCl [Sensipar] 60 mg PO DAILY 09/12/16 Fluticasone Prop 0.05% Nasal 1 - 2 spray NS BID 09/12/16 [Flonase -] Insulin Glargine,Hum.rec.anlog 55 units SQ AM 09/12/16 [Lantus Solostar PEN -] Insulin Lispro [Humalog Kwikpen 20 unit SQ TID 09/12/16 U-100] Meclizine HCl [Antivert -] 25 mg PO TID 09/12/16 Multivit-Min/FA/Lycopen/Lutein 1 each PO DAILY 09/12/16 [Sentry Senior Multivit Caplet] Polyethylene Glycol 3350 [Miralax 17 gm PO BID 09/12/16 119 gm Btl -] metFORMIN HCL [Metformin ER 1,000 mg PO BID 09/12/16 Osmotic] Lisinopril 10 mg PO DAILY #30 tablet 09/14/16 REVIEW OF SYSTEMS CONSTITUTIONAL: Absent: fever, chills, diaphoresis, generalized weakness, malaise, loss of appetite, weight change HEENT: Absent: rhinorrhea, nasal congestion, throat pain, throat swelling, difficulty swallowing, mouth swelling, ear pain, eye pain, visual changes CARDIOVASCULAR: Absent: chest pain, syncope, palpitations, irregular heart rate, lightheadedness , peripheral edema RESPIRATORY: Absent: cough, shortness of breath, dyspnea with exertion, orthopnea, wheezing, stridor, hemoptysis GASTROINTESTINAL: Absent: abdominal pain, abdominal distension, nausea, vomiting, diarrhea, constipation, melena, hematochezia GENITOURINARY: Absent: dysuria, frequency, urgency, hesitancy, hematuria, flank pain, genital pain MUSCULOSKELETAL: Absent: myalgia, arthralgia, joint swelling, back pain, neck pain SKIN: Absent: rash, itching, pallor HEMATOLOGIC/IMMUNOLOGIC: Absent: easy bleeding, easy bruising, lymphadenopathy, frequent infections ENDOCRINE: Absent: unexplained weight gain, unexplained weight loss, heat intolerance, cold intolerance NEUROLOGIC: Absent: headache, focal weakness or paresthesias, dizziness, unsteady gait, seizure, mental status changes, bladder or bowel incontinence PSYCHIATRIC: Absent: anxiety, depression, suicidal or homicidal ideation, hallucinations. PHYSICAL EXAMINATION Vital Signs - 24 hr 11/01/18 11/02/18 23:46 00:29 Temperature 97.8 F Pulse Rate 91 H Pulse Rate [ 87 Left] Respiratory 18 18 Rate Blood Pressure 103/69 Blood Pressure 93/66 [Right] O2 Sat by Pulse 97 Oximetry (%) GENERAL: Awake, alert, and fully oriented, in no acute distress. HEAD: Normal with no signs of trauma. EYES: Pupils equal, round and reactive to light, extraocular movements intact, sclera anicteric, conjunctiva clear. No lid lag. EARS, NOSE, THROAT: Ears normal, nares patent, oropharynx clear without exudates. Moist mucous membranes. NECK: Normal range of motion, supple without lymphadenopathy, JVD, or masses. LUNGS: Breath sounds equal, clear to auscultation bilaterally. No wheezes, and no crackles. No accessory muscle use. HEART: Regular rate and rhythm, normal S1 and S2 without murmur, rub or gallop. ABDOMEN: Soft, obese, nontender, not distended, normoactive bowel sounds, no guarding, no rebound, no masses. MUSCULOSKELETAL: Normal range of motion at all joints. No bony deformities or tenderness. No CVA tenderness. UPPER EXTREMITIES: 2+ pulses, warm, well-perfused. No cyanosis. No clubbing. No peripheral edema. LOWER EXTREMITIES: 2+ pulses, warm, well-perfused. No calf tenderness. No peripheral edema. NEUROLOGICAL: Cranial nerves II-XII intact. Normal speech. Normal gait. PSYCHIATRIC: Cooperative. Good eye contact. Appropriate mood and affect. SKIN: Warm, dry, normal turgor, no rashes or lesions noted, normal capillary refill. Laboratory Results - last 24 hr 11/02/18 11/02/18 11/02/18 00:30 00:30 00:30 WBC RBC Hgb Hct MCV MCH MCHC RDW Plt Count MPV Absolute Neuts (auto) Neutrophils % Lymphocytes % Monocytes % Eosinophils % Basophils % Nucleated RBC % PT with INR INR PTT (Actin FS) 34.6 Sodium Potassium Chloride Carbon Dioxide Anion Gap BUN Creatinine Est GFR (CKD-EPI)AfAm Est GFR (CKD-EPI)NonAf Random Glucose Calcium Total Bilirubin AST ALT Alkaline Phosphatase Creatine Kinase 527 H Troponin I < 0.02 Total Protein Albumin Alcohol, Quantitative 184.3 H 11/02/18 11/02/18 11/02/18 00:30 00:30 00:30 WBC 7.1 RBC 5.00 Hgb 11.7 Hct 36.0 MCV 71.9 L MCH 23.3 L MCHC 32.5 RDW 15.9 Plt Count 200 MPV 9.0 Absolute Neuts (auto) 4.6 Neutrophils % 64.8 Lymphocytes % 25.9 Monocytes % 7.0 Eosinophils % 1.9 Basophils % 0.4 Nucleated RBC % 0 PT with INR 12.30 INR 1.04 PTT (Actin FS) Sodium 134 L Potassium 5.1 Chloride 103 Carbon Dioxide 20 L Anion Gap 11 BUN 44.0 H Creatinine 3.0 H Est GFR (CKD-EPI)AfAm 23.48 Est GFR (CKD-EPI)NonAf 20.26 Random Glucose 171 H Calcium 11.5 H Total Bilirubin 0.3 AST 20 ALT 29 Alkaline Phosphatase 60 Creatine Kinase Troponin I Total Protein 7.5 Albumin 4.1 Alcohol, Quantitative Imaging studies reviewed head ct - 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 No visible acute infarct. Involutional changes. No hemorrhage. Osseous structures are intact. Retention cysts/polyps in the maxillary sinuses ASSESSMENT/PLAN: #Mechanical fall- no evidence of trauma on physical exam, head ct was wnl. Fall probably from etoh intoxication -med/surg -bed rest -fall precautions -check orhtostatics -ekg #[place] -i/o -daily wieghts -avoid nephrotoxins -renal u/s #Hypercalcemia - likely secondary to underlying hyperparathyroidism -IV fluid hydration -on sensipar home med -obtain old records #DM -insulin sliding scale -lantus 55 units qhs #Alcoholism- uncertain if chronic abuse- patient denied -CIWA -IV fluid hydration -banana bag -thiamine -folate -mv -urine toxicology #dvt ppx - heparin sc Visit type - Emergency Visit Emergency Visit: Yes ED Registration Date: 11/02/18 Care time: The patient presented to the Emergency Department on the above date and was hospitalized for further evaluation of their emergent condition. - New Patient This patient is new to me today: Yes Date on this admission: 11/02/18 - Critical Care Critical Care patient: No
[2018-11-02] MEDS ORDERED: FOLIC ACID INJECTION - 1 MG, THIAMINE HCL 100 MG, MULTIVIT INJECTION ADULT 10 ML in SOD... IVPB ONE (01:59)
[2018-11-02] MEDS ORDERED: THIAMINE HCL 100 MG TABLET (FP) ONE (02:01)
[2018-11-02] MEDS ORDERED: FOLIC ACID 1 MG TABLET (FP) ONE (02:01)
[2018-11-02] MEDS ORDERED: LORazepam 2 MG/ML SDV VIAL IVPUSH PRN (02:21)
[2018-11-02 05:35] VITALS: BMI 30.4
[2018-11-02] MEDS: MECLIZINE HCL 25 MG TABLET (FP) PO SCH ×4 (06:32→22:53)
[2018-11-02] MEDS: SODIUM CHLORIDE 1,000 ML IV SCH (06:32)
[2018-11-02] MEDS: INSULIN SLIDING SCALE (NOVOLOG) 1 VIAL SQ SCH ×4 (06:33→22:51)
[2018-11-02] MEDS: INSULIN (LEVEMIR) 100 UNITS/ML UNITS SQ SCH (06:57)
[2018-11-02] MEDS ORDERED: INSULIN GLARGINE HUM REC ANLOG 55 UNIT SQ SCH (07:00)
[2018-11-02] MEDS ORDERED: PT OWN MED DRAWER 7, Y5N ONE (07:02)
[2018-11-02] MEDS ORDERED: CINACALCET HCL 60 MG PO SCH (10:00)
[2018-11-02] MEDS ORDERED: [UNRECOGNIZED DRUG - OTHER] PO SCH (10:00)
[2018-11-02] MEDS ORDERED: CHOLECALCIFEROL PO SCH (10:00)
[2018-11-02] MEDS: LISINOPRIL 10 MG TABLET (FP) PO SCH (10:36)
[2018-11-02] MEDS: ASPIRIN 81 MG CHEWABLE TABLETS PO SCH (10:37)
[2018-11-02] MEDS: THIAMINE HCL 100 MG TABLET (FP) PO SCH (10:37)
[2018-11-02] MEDS: FOLIC ACID 1 MG TABLET (FP) PO SCH (10:37)
[2018-11-02] MEDS: CARVEDILOL 6.25 MG TABLET (FP) PO SCH ×2 (10:37→22:51)
[2018-11-02] MEDS: HEPARIN NA (PORCINE) 5,000 UNITS/ML 1ML VIAL SQ SCH ×2 (10:38→22:51)
[2018-11-02] MEDS: CINACALCET HCL 30 MG TAB (FP) PO SCH ×2 (11:48→12:20)
--- NOTE | 2018-11-02 11:58 | EKG ---
Test Reason : Blood Pressure : / mmHG Vent. Rate : 088 BPM Atrial Rate : 088 BPM P-R Int : 166 ms QRS Dur : 080 ms QT Int : 330 ms P-R-T Axes : 027 -07 044 degrees QTc Int : 399 ms NORMAL SINUS RHYTHM NORMAL ECG WHEN COMPARED WITH ECG OF 12-SEP-2016 15:27, NO SIGNIFICANT CHANGE WAS FOUND Confirmed by JOB CAMARILLO MD ([id number]) on 11/02/2018 11:58:42 AM Referred By: Confirmed By:JOB CAMARILLO MD
--- NOTE | 2018-11-02 13:22 | PN ---
Progress Note (short form) - Note Progress Note: drowsy, no complaints Tells me he drinks beer socially Yesterday he had 3 beers Vital Signs - 24 hr 11/01/18 11/01/18 11/02/18 23:45 23:46 00:29 Temperature 98 F 97.8 F Pulse Rate 91 H Pulse Rate [ 97 H 87 Left] Respiratory 18 18 18 Rate Blood Pressure 103/69 Blood Pressure 125/92 93/66 [Right] O2 Sat by Pulse 100 97 Oximetry (%) 11/02/18 11/02/18 11/02/18 02:49 05:19 07:48 Temperature 97.8 F 97.5 F L Pulse Rate 96 H 107 H Pulse Rate [ Left] Respiratory 18 19 Rate Blood Pressure 134/82 111/73 Blood Pressure [Right] O2 Sat by Pulse 100 99 Oximetry (%) 11/02/18 09:00 Temperature Pulse Rate Pulse Rate [ Left] Respiratory 19 Rate Blood Pressure Blood Pressure [Right] O2 Sat by Pulse 96 Oximetry (%) Current Medications Generic Name Dose Route Start Last Admin Trade Name Marekq PRN Reason Stop Dose Admin Aspirin 81 mg 11/02/18 10:00 11/02/18 10:37 Asa - PO 81 mg DAILY [facility] Administration Carvedilol 6.25 mg 11/02/18 10:00 11/02/18 10:37 Coreg - PO 6.25 mg BID [facility] Administration Cinacalcet 60 mg 11/02/18 10:00 11/02/18 12:20 Sensipar - PO Not Given DAILY [facility] Folic Acid 1 mg 11/02/18 10:00 11/02/18 10:37 Folic Acid - PO 1 mg DAILY [facility] Administration Heparin Sodium (Porcine) 5,000 unit 11/02/18 10:00 11/02/18 10:38 Heparin - SQ 5,000 unit BID [facility] Administration Sodium Chloride 1,000 mls @ 75 mls/hr 11/02/18 01:45 11/02/18 06:32 Normal Saline - IV 75 mls/hr ASDIR [facility] Administration Insulin Aspart 1 vial 11/02/18 07:00 11/02/18 12:21 Novolog Vial Sliding Scale - SQ 2 units ACHS [facility] Administration Protocol Insulin Detemir 55 units 11/02/18 07:00 11/02/18 06:57 Levemir Vial SQ 55 units AM [facility] Administration Lisinopril 10 mg 07/26/19 10:00 11/02/18 10:36 Prinivil PO Not Given DAILY [facility] Lorazepam 2 mg 11/02/18 02:21 11/02/18 06:35 Ativan Injection - IVPUSH 2 mg TID PRN Administration ANXIETY Meclizine HCl 25 mg 11/02/18 06:00 11/02/18 06:32 Antivert - PO 25 mg TID [facility] Administration Non-Formulary Medication 2 tab 11/02/18 10:00 Cholecalciferol (Vitamin D3) [Vitamin D3] PO DAILY [facility] Non-Formulary Medication 1 each 11/02/18 10:00 Multivit-Min/Fa/Lycopen/Lutein [Sentry Senior Multivit Caplet] PO DAILY [facility] Thiamine HCl 100 mg 11/02/18 10:00 11/02/18 10:37 Vitamin B1 - PO 100 mg DAILY [facility] Administration Laboratory Results - last 24 hr 11/02/18 11/02/18 11/02/18 00:30 00:30 00:30 WBC RBC Hgb Hct MCV MCH MCHC RDW Plt Count MPV Absolute Neuts (auto) Neutrophils % Lymphocytes % Monocytes % Eosinophils % Basophils % Nucleated RBC % PT with INR INR PTT (Actin FS) 34.6 Sodium Potassium Chloride Carbon Dioxide Anion Gap BUN Creatinine Est GFR (CKD-EPI)AfAm Est GFR (CKD-EPI)NonAf POC Glucometer Random Glucose Calcium Total Bilirubin AST ALT Alkaline Phosphatase Creatine Kinase 527 H Creatine Kinase Index 1.1 CK-MB (CK-2) 6.0 H Troponin I < 0.02 Total Protein Albumin Alcohol, Quantitative 184.3 H 11/02/18 11/02/18 11/02/18 00:30 00:30 00:30 WBC 7.1 RBC 5.00 Hgb 11.7 Hct 36.0 MCV 71.9 L MCH 23.3 L MCHC 32.5 RDW 15.9 Plt Count 200 MPV 9.0 Absolute Neuts (auto) 4.6 Neutrophils % 64.8 Lymphocytes % 25.9 Monocytes % 7.0 Eosinophils % 1.9 Basophils % 0.4 Nucleated RBC % 0 PT with INR 12.30 INR 1.04 PTT (Actin FS) Sodium 134 L Potassium 5.1 Chloride 103 Carbon Dioxide 20 L Anion Gap 11 BUN 44.0 H Creatinine 3.0 H Est GFR (CKD-EPI)AfAm 23.48 Est GFR (CKD-EPI)NonAf 20.26 POC Glucometer Random Glucose 171 H Calcium 11.5 H Total Bilirubin 0.3 AST 20 ALT 29 Alkaline Phosphatase 60 Creatine Kinase Creatine Kinase Index CK-MB (CK-2) Troponin I Total Protein 7.5 Albumin 4.1 Alcohol, Quantitative 11/02/18 11/02/18 06:01 12:03 WBC RBC Hgb Hct MCV MCH MCHC RDW Plt Count MPV Absolute Neuts (auto) Neutrophils % Lymphocytes % Monocytes % Eosinophils % Basophils % Nucleated RBC % PT with INR INR PTT (Actin FS) Sodium Potassium Chloride Carbon Dioxide Anion Gap BUN Creatinine Est GFR (CKD-EPI)AfAm Est GFR (CKD-EPI)NonAf POC Glucometer 122 187 Random Glucose Calcium Total Bilirubin AST ALT Alkaline Phosphatase Creatine Kinase Creatine Kinase Index CK-MB (CK-2) Troponin I Total Protein Albumin Alcohol, Quantitative Heart sounds regular Lungs clear Abdomen soft, obese Nontender No edema Plan IV fluids Monitor renal function Ativan as needed for withdrawal symptoms Check ultrasound kidneys and urinary bladder Problem List - Problems (1) Alcohol intoxication Code(s): F10.929 - ALCOHOL USE, UNSPECIFIED WITH INTOXICATION, UNSPECIFIED (2) Hypercalcemia Code(s): E83.52 - HYPERCALCEMIA (3) Diabetes Code(s): E11.9 - TYPE 2 DIABETES MELLITUS WITHOUT COMPLICATIONS Qualifiers: Diabetes mellitus type: type 2 Chronic kidney disease stage: stage 2 (mild )
--- NOTE | 2018-11-02 16:02 | CONSULT ---
Consult Consult Specialty:: Nephrology Reason for Consultation:: [place] - History of Present Illness Chief Complaint: sent in after a fall History of Present Illness: Pt is a 68 year old male with pmhx of dm, htn, prostate cancer, hld, vertigo, and cad who presented to the er after a fall. He was found to have elevated creatinine and I was walled to evaluate him. He denies shortness of breath. he denies dysuria or hematuria. He was drinking heavily yesterday before he fell. He was also found to have hypotension. He denies nsaid use. 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 Cardio/Vascular: Yes: HTN Heme/Onc: Yes: Other (prostate cancer) - Alcohol/Substance Use Hx Alcohol Use: Yes - Smoking History Smoking history: Unknown if ever smoked Have you smoked in the past 12 months: No Aproximately how many cigarettes per day: 0 If you are a former smoker, when did you quit?: years Home Medications - Allergies Allergies/Adverse Reactions: Allergies Allergy/AdvReac Type Severity Reaction Status Date / Time No Known Allergies Allergy Verified 09/12/16 15:06 - Home Medications Home Medications: Ambulatory Orders Ammonium Lactate Lotion [Lac-Hydrin 12] 1 applic TP ASDIR 09/12/16 Aspirin [ASA -] 81 mg PO DAILY 09/12/16 Carvedilol [Coreg] 6.25 mg PO BID 09/12/16 Cholecalciferol (Vitamin D3) [Vitamin D3] 2 tab PO DAILY 09/12/16 Cinacalcet HCl [Sensipar] 60 mg PO DAILY 09/12/16 Fluticasone Prop 0.05% Nasal [Flonase -] 1 - 2 spray NS BID 09/12/16 Insulin Glargine,Hum.rec.anlog [Lantus Solostar PEN -] 55 units SQ AM 09/12/16 Insulin Lispro [Humalog Kwikpen U-100] 20 unit SQ TID 09/12/16 Meclizine HCl [Antivert -] 25 mg PO TID 09/12/16 Multivit-Min/FA/Lycopen/Lutein [Sent Senior Multivit Caplet] 1 each PO DAILY 09/12/16 Polyethylene Glycol 3350 [Miralax 119 gm Btl -] 17 gm PO BID 09/12/16 metFORMIN HCL [Metformin ER Osmotic] 1,000 mg PO BID 09/12/16 Lisinopril 10 mg PO DAILY #30 tablet 09/14/16 Family Disease History - Family Disease History Family History: Denies Review of Systems - Review of Systems Constitutional: reports: No Symptoms Eyes: reports: No Symptoms HENT: reports: No Symptoms Neck: reports: No Symptoms Cardiovascular: reports: No Symptoms Respiratory: reports: No Symptoms Gastrointestinal: reports: No Symptoms Genitourinary: reports: No Symptoms Musculoskeletal: reports: No Symptoms Integumentary: reports: No Symptoms Neurological: reports: No Symptoms Endocrine: reports: No Symptoms Hematology/Lymphatic: reports: No Symptoms Psychiatric: reports: No Symptoms Physical Exam Vital Signs: Vital Signs Temperature 97.5 F L 11/02/18 07:48 Pulse Rate 107 H 11/02/18 07:48 Respiratory Rate 19 11/02/18 09:00 Blood Pressure 111/73 11/02/18 07:48 O2 Sat by Pulse Oximetry (%) 96 11/02/18 09:00 Constitutional: Yes: Calm Eyes: Yes: Conjunctiva Clear HENT: Yes: Atraumatic Neck: Yes: Supple Cardiovascular: Yes: S1, S2 Respiratory: Yes: CTA Bilaterally Gastrointestinal: Yes: Soft Renal/: Yes: WNL Musculoskeletal: Yes: WNL Edema: No Neurological: Yes: Oriented Psychiatric: Yes: Oriented Labs: CBC, BMP 11/02/18 00:30 11/02/18 00:30 Imaging - Results Chest X-ray: Report Reviewed Ultrasound: Report Reviewed Problem List - Problems (1) [place] (acute kidney injury) Code(s): N17.9 - ACUTE KIDNEY FAILURE, UNSPECIFIED (2) Alcohol intoxication Code(s): F10.929 - ALCOHOL USE, UNSPECIFIED WITH INTOXICATION, UNSPECIFIED Assessment/Plan Current Medications Generic Name Dose Route Start Last Admin Trade Name Freq PRN Reason Stop Dose Admin Aspirin 81 mg 11/02/18 10:00 11/02/18 10:37 Asa - PO 81 mg DAILY [facility] Administration Carvedilol 6.25 mg 11/02/18 10:00 11/02/18 10:37 Coreg - PO 6.25 mg BID [facility] Administration Cinacalcet 60 mg 11/02/18 10:00 11/02/18 12:20 Sensipar - PO Not Given DAILY [facility] Folic Acid 1 mg 11/02/18 10:00 11/02/18 10:37 Folic Acid - PO 1 mg DAILY [facility] Administration Heparin Sodium (Porcine) 5,000 unit 11/02/18 10:00 11/02/18 10:38 Heparin - SQ 5,000 unit BID [facility] Administration Sodium Chloride 1,000 mls @ 75 mls/hr 11/02/18 01:45 11/02/18 06:32 Normal Saline - IV 75 mls/hr ASDIR [facility] Administration Insulin Aspart 1 vial 11/02/18 07:00 11/02/18 12:21 Novolog Vial Sliding Scale - SQ 2 units ACHS [facility] Administration Protocol Insulin Detemir 55 units 11/02/18 07:00 11/02/18 06:57 Levemir Vial SQ 55 units AM [facility] Administration Lisinopril 10 mg 11/02/18 10:00 11/02/18 10:36 Prinivil PO Not Given DAILY [facility] Lorazepam 2 mg 11/02/18 02:21 11/02/18 06:35 Ativan Injection - IVPUSH 2 mg TID PRN Administration ANXIETY Meclizine HCl 25 mg 11/02/18 06:00 11/02/18 14:36 Antivert - PO Not Given TID [facility] Non-Formulary Medication 2 tab 11/02/18 10:00 Cholecalciferol (Vitamin D3) [Vitamin D3] PO DAILY [facility] Non-Formulary Medication 1 each 11/02/18 10:00 Multivit-Min/Fa/Lycopen/Lutein [Sentry Senior Multivit Caplet] PO DAILY [facility] Thiamine HCl 100 mg 11/02/18 10:00 11/02/18 10:37 Vitamin B1 - PO 100 mg DAILY [facility] Administration Laboratory Tests 09/14/16 11/02/18 11/02/18 08:30 00:30 00:30 Sodium Potassium BUN Creatinine 1.3 Calcium Creatine Kinase 527 H Alcohol, Quantitative 184.3 H 11/02/18 00:30 Sodium 134 L Potassium 5.1 BUN 44.0 H Creatinine 3.0 H Calcium 11.5 H Creatine Kinase Alcohol, Quantitative Impression 1. [place] 2. hyperparathyroidism 3. htn 4. elevated pvr 5. prostate cancer 6. etoh abuse 7. s/p fall Plan - cont with fluids - repeat labs in am - repeat bladder scan tomorrow - monitor bp and if it stays stable will start flomax
[2018-11-02] MEDS ORDERED: INSULIN (NOVOLOG) ASPART 100 UNITS/ML 10ML VIAL ONE (16:27)
[2018-11-03] MEDS: MECLIZINE HCL 25 MG TABLET (FP) PO SCH ×3 (07:09→21:49)
[2018-11-03] MEDS: INSULIN SLIDING SCALE (NOVOLOG) 1 VIAL SQ SCH ×4 (07:09→21:53)
[2018-11-03] MEDS: INSULIN (LEVEMIR) 100 UNITS/ML UNITS SQ SCH (07:09)
[2018-11-03 08:26] LABS: BASO % 1.1 % (0-2.0); EOS % 5.8 % (0-4.5); HEMATOCRIT 36.3 % (35.4-49); HEMOGLOBIN 11.8 GM/dL (11.7-16.9); LYMPH % 42.4 % (8-40); MCH 23.4 pg (25.7-33.7); MCHC 32.4 g/dl (32.0-35.9); MEAN CELL VOLUME 72.2 fl (80-96); MEAN PLT VOLUME 9.1 fl (7.5-11.1); MONO % 8.6 % (3.8-10.2); NEUT % 42.1 % (42.8-82.8); PLATELET COUNT 188 K/MM3 (134-434); RBC 5.03 M/mm3 (4.00-5.60); RDW 16.1 % (11.9-15.9); WHITE BLOOD COUNT 4.7 K/mm3 (4.0-10.0)
[2018-11-03 08:39] LABS: ALBUMIN 3.6 g/dl (3.4-5.0); BILIRUBIN,TOTAL 0.5 mg/dL (0.2-1); BLOOD UREA NITROGEN 26.9 mg/dL (7-18); CALCIUM 11.2 mg/dL (8.5-10.1); CREATININE 1.4 mg/dL (0.55-1.3); POTASSIUM 5.7 mmol/L (3.5-5.1); TOT PROT 6.9 g/dl (6.4-8.2)
[2018-11-03] MEDS ORDERED: PT OWN MED DRAWER 7, Y5N ONE (09:05)
[2018-11-03] MEDS: LISINOPRIL 10 MG TABLET (FP) PO SCH (09:22)
[2018-11-03] MEDS: THIAMINE HCL 100 MG TABLET (FP) PO SCH (09:22)
[2018-11-03] MEDS: FOLIC ACID 1 MG TABLET (FP) PO SCH (09:22)
[2018-11-03] MEDS: ASPIRIN 81 MG CHEWABLE TABLETS PO SCH (09:22)
[2018-11-03] MEDS: CINACALCET HCL 30 MG TAB (FP) PO SCH (09:22)
[2018-11-03] MEDS: CARVEDILOL 6.25 MG TABLET (FP) PO SCH ×2 (09:31→21:49)
[2018-11-03] MEDS: HEPARIN NA (PORCINE) 5,000 UNITS/ML 1ML VIAL SQ SCH ×2 (10:33→21:51)
--- NOTE | 2018-11-03 12:17 | PN ---
Progress Note, Physician History of Present Illness: 68 year old male BIBEMS from the [facility] for evaluation s/p fall on 11/01. Patient was found to be intoxicated in ER, stated that EMS was summoned, found that his BP was low and was brought in. Pt is relatively better No SOB - Current Medication List Current Medications: Active Medications Aspirin (Asa -) 81 mg PO DAILY [facility] Last Admin: 11/03/18 09:22 Dose: 81 mg Carvedilol (Coreg -) 6.25 mg PO BID [facility] Last Admin: 11/03/18 09:31 Dose: 6.25 mg Cinacalcet (Sensipar -) 60 mg PO DAILY [facility] Last Admin: 11/03/18 09:22 Dose: 60 mg Folic Acid (Folic Acid -) 1 mg PO DAILY [facility] Last Admin: 11/03/18 09:22 Dose: 1 mg Heparin Sodium (Porcine) (Heparin -) 5,000 unit SQ BID [facility] Last Admin: 11/03/18 10:33 Dose: 5,000 unit Sodium Chloride (Normal Saline -) 1,000 mls @ 75 mls/hr IV ASDIR [facility] Last Admin: 11/02/18 06:32 Dose: 75 mls/hr Insulin Aspart (Novolog Vial Sliding Scale -) 1 vial SQ ACHS [facility]; Protocol Last Admin: 11/03/18 11:34 Dose: Not Given Insulin Detemir (Levemir Vial) 55 units SQ AM [facility] Last Admin: 11/03/18 07:09 Dose: 55 units Lisinopril (Prinivil) 10 mg PO DAILY [facility] Last Admin: 11/03/18 09:22 Dose: 10 mg Lorazepam (Ativan Injection -) 2 mg IVPUSH TID PRN PRN Reason: ANXIETY Last Admin: 11/02/18 06:35 Dose: 2 mg Meclizine HCl (Antivert -) 25 mg PO TID [facility] Last Admin: 11/03/18 07:09 Dose: Not Given Non-Formulary Medication (Cholecalciferol (Vitamin D3) [Vitamin D3]) 2 tab PO DAILY [facility] Non-Formulary Medication (Multivit-Min/Fa/Lycopen/Lutein [Sent Senior Multivit Caplet]) 1 each PO DAILY [facility] Thiamine HCl (Vitamin B1 -) 100 mg PO DAILY [facility] Last Admin: 11/03/18 09:22 Dose: 100 mg - Objective Vital Signs: Vital Signs Temperature 98.4 F 11/03/18 06:36 Pulse Rate 80 11/03/18 06:36 Respiratory Rate 20 11/03/18 06:36 Blood Pressure 130/70 11/03/18 06:36 O2 Sat by Pulse Oximetry (%) 96 11/02/18 09:00 Constitutional: Yes: No Distress Eyes: Yes: Conjunctiva Clear, EOM Intact HENT: Yes: Atraumatic, Normocephalic Neck: Yes: Supple, Trachea Midline Cardiovascular: Yes: Regular Rate and Rhythm, S1, S2 Respiratory: Yes: Regular, CTA Bilaterally Gastrointestinal: Yes: Normal Bowel Sounds, Soft Edema: No Peripheral Pulses WNL: Yes Neurological: Yes: Alert, Oriented, Cran Nerves II-XII Intact Labs: CBC, BMP 11/03/18 07:10 11/03/18 07:10 INR, PTT INR 1.04 (0.83-1.09) 11/02/18 00:30 Problem List - Problems (1) Diabetes Code(s): E11.9 - TYPE 2 DIABETES MELLITUS WITHOUT COMPLICATIONS Qualifiers: Diabetes mellitus type: type 2 Chronic kidney disease stage: stage 2 (mild ) (2) Hypotension Code(s): I95.9 - HYPOTENSION, UNSPECIFIED Qualifiers: Hypotension type: idiopathic hypotension Qualified Code(s): I95.0 - Idiopathic hypotension (3) Peripheral vertigo Code(s): H81.399 - OTHER PERIPHERAL VERTIGO, UNSPECIFIED EAR (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CIFIED Assessment/Plan (1) Diabetes Code(s): E11.9 - TYPE 2 DIABETES MELLITUS WITHOUT COMPLICATIONS Qualifiers: Diabetes mellitus type: type 2 Chronic kidney disease stage: stage 2 (mild ) (2) Hypotension Code(s): I95.9 - HYPOTENSION, UNSPECIFIED Qualifiers: Hypotension type: idiopathic hypotension Qualified Code(s): I95.0 - Idiopathic hypotension (3) Peripheral vertigo Code(s): H81.399 - OTHER PERIPHERAL VERTIGO, UNSPECIFIED EAR (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
[2018-11-03] MEDS: SODIUM CHLORIDE 1,000 ML IV SCH (13:43)
--- NOTE | 2018-11-03 15:39 | PN ---
Progress Note, Physician History of Present Illness: Pt seen and examined at bedside. He is awake and alert. He denies shortness of breath. - Current Medication List Current Medications: Active Medications Aspirin (Asa -) 81 mg PO DAILY [facility] Last Admin: 11/03/18 09:22 Dose: 81 mg Carvedilol (Coreg -) 6.25 mg PO BID [facility] Last Admin: 11/03/18 09:31 Dose: 6.25 mg Cinacalcet (Sensipar -) 60 mg PO DAILY [facility] Last Admin: 11/03/18 09:22 Dose: 60 mg Folic Acid (Folic Acid -) 1 mg PO DAILY [facility] Last Admin: 11/03/18 09:22 Dose: 1 mg Heparin Sodium (Porcine) (Heparin -) 5,000 unit SQ BID [facility] Last Admin: 11/03/18 10:33 Dose: 5,000 unit Sodium Chloride (Normal Saline -) 1,000 mls @ 75 mls/hr IV ASDIR [facility] Last Admin: 11/03/18 13:43 Dose: 75 mls/hr Insulin Aspart (Novolog Vial Sliding Scale -) 1 vial SQ ACHS [facility]; Protocol Last Admin: 11/03/18 11:34 Dose: Not Given Insulin Detemir (Levemir Vial) 55 units SQ AM [facility] Last Admin: 11/03/18 07:09 Dose: 55 units Lisinopril (Prinivil) 10 mg PO DAILY [facility] Last Admin: 11/03/18 09:22 Dose: 10 mg Lorazepam (Ativan Injection -) 2 mg IVPUSH TID PRN PRN Reason: ANXIETY Last Admin: 11/02/18 06:35 Dose: 2 mg Meclizine HCl (Antivert -) 25 mg PO TID [facility] Last Admin: 11/03/18 13:41 Dose: 25 mg Non-Formulary Medication (Cholecalciferol (Vitamin D3) [Vitamin D3]) 2 tab PO DAILY [facility] Non-Formulary Medication (Multivit-Min/Fa/Lycopen/Lutein [Sentry Senior Multivit Caplet]) 1 each PO DAILY [facility] Thiamine HCl (Vitamin B1 -) 100 mg PO DAILY [facility] Last Admin: 11/03/18 09:22 Dose: 100 mg - Objective Vital Signs: Vital Signs Temperature 98.5 F 11/03/18 12:00 Pulse Rate 68 11/03/18 12:00 Respiratory Rate 20 11/03/18 12:00 Blood Pressure 130/88 11/03/18 12:00 O2 Sat by Pulse Oximetry (%) 99 11/03/18 09:00 Constitutional: Yes: Calm Eyes: Yes: Conjunctiva Clear HENT: Yes: Atraumatic Neck: Yes: Supple Cardiovascular: Yes: S1, S2 Respiratory: Yes: CTA Bilaterally Gastrointestinal: Yes: Soft, Abdomen, Obese Genitourinary: Yes: WNL Musculoskeletal: Yes: WNL Edema: No Neurological: Yes: Oriented Psychiatric: Yes: Oriented Labs: CBC, BMP 11/03/18 07:10 11/03/18 07:10 INR, PTT INR 1.04 (0.83-1.09) 11/02/18 00:30 Problem List - Problems (1) [place] (acute kidney injury) Code(s): N17.9 - ACUTE KIDNEY FAILURE, UNSPECIFIED (2) Alcohol intoxication Code(s): F10.929 - ALCOHOL USE, UNSPECIFIED WITH INTOXICATION, UNSPECIFIED Assessment/Plan Current Medications Generic Name Dose Route Start Last Admin Trade Name Jordan PRN Reason Stop Dose Admin Aspirin 81 mg 11/02/18 10:00 11/03/18 09:22 Asa - PO 81 mg DAILY [facility] Administration Carvedilol 6.25 mg 11/02/18 10:00 11/03/18 09:31 Coreg - PO 6.25 mg BID [facility] Administration Cinacalcet 60 mg 11/02/18 10:00 11/03/18 09:22 Sensipar - PO 60 mg DAILY [facility] Administration Folic Acid 1 mg 11/02/18 10:00 11/03/18 09:22 Folic Acid - PO 1 mg DAILY [facility] Administration Heparin Sodium (Porcine) 5,000 unit 11/02/18 10:00 11/03/18 10:33 Heparin - SQ 5,000 unit BID [facility] Administration Sodium Chloride 1,000 mls @ 75 mls/hr 11/02/18 01:45 11/03/18 13:43 Normal Saline - IV 75 mls/hr ASDIR [facility] Administration Insulin Aspart 1 vial 11/02/18 07:00 11/03/18 11:34 Novolog Vial Sliding Scale - SQ Not Given ACHS [facility] Protocol Insulin Detemir 55 units 11/02/18 07:00 11/03/18 07:09 Levemir Vial SQ 55 units AM [facility] Administration Lisinopril 10 mg 11/02/18 10:00 11/03/18 09:22 Prinivil PO 10 mg DAILY [facility] Administration Lorazepam 2 mg 11/02/18 02:21 11/02/18 06:35 Ativan Injection - IVPUSH 2 mg TID PRN Administration ANXIETY Meclizine HCl 25 mg 11/02/18 06:00 11/03/18 13:41 Antivert - PO 25 mg TID [facility] Administration Non-Formulary Medication 2 tab 11/02/18 10:00 Cholecalciferol (Vitamin D3) [Vitamin D3] PO DAILY [facility] Non-Formulary Medication 1 each 11/02/18 10:00 Multivit-Min/Fa/Lycopen/Lutein [Sentry Senior Multivit Caplet] PO DAILY [facility] Thiamine HCl 100 mg 11/02/18 10:00 11/03/18 09:22 Vitamin B1 - PO 100 mg DAILY [facility] Administration Impression 1. [place] 2. hyperparathyroidism 3. htn 4. elevated pvr 5. prostate cancer 6. etoh abuse 7. s/p fall 8. hyperkalemia Plan - change fluids to 1/2 ns - start lokelma - low potassium diet - check bladder scan - renal function is improving - stop lisinopril for now
[2018-11-03] MEDS ORDERED: SODIUM BICARBONATE 8.4% 50 MEQ/50 ML VIAL IVPB ONE (15:41)
[2018-11-03] MEDS ORDERED: SODIUM CHLORIDE 0.45% 1,000 ML IV SCH (15:45)
[2018-11-03 17:09] LABS: BLOOD UREA NITROGEN 26.5 mg/dL (7-18); CREATININE 1.7 mg/dL (0.55-1.3); POTASSIUM 5.3 mmol/L (3.5-5.1)
[2018-11-03] MEDS: SODIUM ZIRCONIUM CYCLOSILICATE (LOKELMA) 5 GM PACKET PO SCH (17:12)
[2018-11-03 18:21] LABS: URINE APPEARANCE CLEAR; URINE BILIRUBIN NEGATIVE (NEGATIVE); URINE COLOR YELLOW; URINE GLUCOSE (UA) NEGATIVE (NEGATIVE); URINE KETONE NEGATIVE (NEGATIVE); URINE LEUK ESTERASE NEGATIVE (NEGATIVE); URINE NITRITE NEGATIVE (NEGATIVE); URINE PROTEIN NEGATIVE (NEGATIVE); URINE UROBILINOGEN 0.2 mg/dL (0.2-1.0)
[2018-11-03] MEDS: TAMSULOSIN HCL 0.4 MG CAP PO SCH (20:17)
[2018-11-04] MEDS: INSULIN (LEVEMIR) 100 UNITS/ML UNITS SQ SCH (06:41)
[2018-11-04] MEDS: INSULIN SLIDING SCALE (NOVOLOG) 1 VIAL SQ SCH ×4 (06:41→21:13)
[2018-11-04] MEDS: MECLIZINE HCL 25 MG TABLET (FP) PO SCH ×3 (06:41→21:12)
[2018-11-04 08:38] LABS: ALBUMIN 3.4 g/dl (3.4-5.0); BILIRUBIN,TOTAL 0.5 mg/dL (0.2-1); CALCIUM 10.2 mg/dL (8.5-10.1); CREATININE 1.4 mg/dL (0.55-1.3); POTASSIUM 4.7 mmol/L (3.5-5.1); TOT PROT 6.4 g/dl (6.4-8.2)
[2018-11-04] MEDS: ASPIRIN 81 MG CHEWABLE TABLETS PO SCH (09:17)
[2018-11-04] MEDS: CHOLECALCIFEROL (VIT D3) 1,000 UNIT (25 MCG) TABLET PO SCH (09:18)
[2018-11-04] MEDS: FOLIC ACID 1 MG TABLET (FP) PO SCH (09:18)
[2018-11-04] MEDS: CARVEDILOL 6.25 MG TABLET (FP) PO SCH ×2 (09:18→21:12)
[2018-11-04] MEDS: MULTIVITAMINS (DAILY MVI) TABLET (FP) PO SCH (09:18)
[2018-11-04] MEDS: CINACALCET HCL 30 MG TAB (FP) PO SCH (09:19)
[2018-11-04] MEDS: THIAMINE HCL 100 MG TABLET (FP) PO SCH (09:20)
[2018-11-04] MEDS: HEPARIN NA (PORCINE) 5,000 UNITS/ML 1ML VIAL SQ SCH ×2 (09:20→21:12)
[2018-11-04] MEDS: SODIUM ZIRCONIUM CYCLOSILICATE (LOKELMA) 5 GM PACKET PO SCH (09:20)
--- NOTE | 2018-11-04 14:14 | PN ---
Progress Note, Physician History of Present Illness: Pt seen and examined at bedside. He is awake and alert. He denies shortness of breath. - Current Medication List Current Medications: Active Medications Aspirin (Asa -) 81 mg PO DAILY [facility] Last Admin: 11/04/18 09:17 Dose: 81 mg Carvedilol (Coreg -) 6.25 mg PO BID [facility] Last Admin: 11/04/18 09:18 Dose: 6.25 mg Cholecalciferol (Vitamin D3 -) 2,000 unit PO DAILY [facility] Last Admin: 11/04/18 09:18 Dose: 2,000 unit Cinacalcet (Sensipar -) 60 mg PO DAILY [facility] Last Admin: 11/04/18 09:19 Dose: 60 mg Folic Acid (Folic Acid -) 1 mg PO DAILY [facility] Last Admin: 11/04/18 09:18 Dose: 1 mg Heparin Sodium (Porcine) (Heparin -) 5,000 unit SQ BID [facility] Last Admin: 11/04/18 09:20 Dose: 5,000 unit Sodium Chloride (1/2 Normal Saline) 1,000 mls @ 50 mls/hr IV ASDIR [facility] Stop: 11/04/18 15:40 Last Admin: 11/03/18 16:34 Dose: 50 mls/hr Insulin Aspart (Novolog Vial Sliding Scale -) 1 vial SQ ACHS [facility]; Protocol Last Admin: 11/04/18 12:00 Dose: Not Given Insulin Detemir (Levemir Vial) 55 units SQ AM [facility] Last Admin: 11/04/18 06:41 Dose: 55 units Lorazepam (Ativan Injection -) 2 mg IVPUSH TID PRN PRN Reason: ANXIETY Last Admin: 11/02/18 06:35 Dose: 2 mg Meclizine HCl (Antivert -) 25 mg PO TID [facility] Last Admin: 11/04/18 13:21 Dose: Not Given Multivitamins/Minerals/Vitamin C (Tab-A-Vit -) 1 tab PO DAILY [facility] Last Admin: 11/04/18 09:18 Dose: 1 tab Sodium Zirconium Cyclosilicate (Lokelma) 10 gm PO DAILY [facility] Last Admin: 11/04/18 09:20 Dose: 10 gm Tamsulosin HCl (Flomax -) 0.4 mg PO DAILY@2100 [facility] Last Admin: 11/03/18 20:17 Dose: 0.4 mg Thiamine HCl (Vitamin B1 -) 100 mg PO DAILY [facility] Last Admin: 11/04/18 09:20 Dose: 100 mg - Objective Vital Signs: Vital Signs Temperature 97.6 F 11/04/18 09:14 Pulse Rate 68 11/04/18 09:14 Respiratory Rate 17 11/04/18 09:14 Blood Pressure 128/85 11/04/18 09:14 O2 Sat by Pulse Oximetry (%) 96 11/04/18 09:00 Constitutional: Yes: Calm Eyes: Yes: Conjunctiva Clear HENT: Yes: Atraumatic Neck: Yes: Supple Cardiovascular: Yes: S1, S2 Respiratory: Yes: CTA Bilaterally Gastrointestinal: Yes: Soft Genitourinary: Yes: WNL Musculoskeletal: Yes: WNL Edema: No Neurological: Yes: Oriented Psychiatric: Yes: Oriented Labs: CBC, BMP 11/03/18 07:10 11/04/18 07:00 INR, PTT INR 1.04 (0.83-1.09) 11/02/18 00:30 Problem List - Problems (1) [place] (acute kidney injury) Code(s): N17.9 - ACUTE KIDNEY FAILURE, UNSPECIFIED (2) Alcohol intoxication Code(s): F10.929 - ALCOHOL USE, UNSPECIFIED WITH INTOXICATION, UNSPECIFIED Assessment/Plan Current Medications Generic Name Dose Route Start Last Admin Trade Name Jordan PRN Reason Stop Dose Admin Aspirin 81 mg 11/02/18 10:00 11/04/18 09:17 Asa - PO 81 mg DAILY [facility] Administration Carvedilol 6.25 mg 11/02/18 10:00 11/04/18 09:18 Coreg - PO 6.25 mg BID [facility] Administration Cholecalciferol 2,000 unit 11/04/18 10:00 11/04/18 09:18 Vitamin D3 - PO 2,000 unit DAILY [facility] Administration Cinacalcet 60 mg 11/02/18 10:00 11/04/18 09:19 Sensipar - PO 60 mg DAILY [facility] Administration Folic Acid 1 mg 11/02/18 10:00 11/04/18 09:18 Folic Acid - PO 1 mg DAILY [facility] Administration Heparin Sodium (Porcine) 5,000 unit 11/02/18 10:00 11/04/18 09:20 Heparin - SQ 5,000 unit BID [facility] Administration Sodium Chloride 1,000 mls @ 50 mls/hr 11/03/18 15:45 11/03/18 16:34 1/2 Normal Saline IV 11/04/18 15:40 50 mls/hr ASDIR [facility] Administration Insulin Aspart 1 vial 11/02/18 07:00 11/04/18 12:00 Novolog Vial Sliding Scale - SQ Not Given ACHS [facility] Protocol Insulin Detemir 55 units 11/02/18 07:00 11/04/18 06:41 Levemir Vial SQ 55 units AM [facility] Administration Lorazepam 2 mg 11/02/18 02:21 11/02/18 06:35 Ativan Injection - IVPUSH 2 mg TID PRN Administration ANXIETY Meclizine HCl 25 mg 11/02/18 06:00 11/04/18 13:21 Antivert - PO Not Given TID [facility] Multivitamins/Minerals/Vitamin C 1 tab 11/04/18 10:00 11/04/18 09:18 Tab-A-Vit - PO 1 tab DAILY [facility] Administration Sodium Zirconium Cyclosilicate 10 gm 11/03/18 15:45 11/04/18 09:20 Lokelma PO 10 gm DAILY [facility] Administration Tamsulosin HCl 0.4 mg 11/03/18 21:00 11/03/18 20:17 Flomax - PO 0.4 mg DAILY@2100 [facility] Administration Thiamine HCl 100 mg 11/02/18 10:00 11/04/18 09:20 Vitamin B1 - PO 100 mg DAILY [facility] Administration Impression 1. [place] 2. hyperparathyroidism 3. htn 4. elevated pvr 5. prostate cancer 6. etoh abuse 7. s/p fall 8. hyperkalemia Plan - cont fluids - potassium improved - can stop lokelma - repeat labs in am - cont flomax - lisinopril on hold
--- NOTE | 2018-11-04 18:04 | PN ---
Progress Note, Physician History of Present Illness: 68 year old male BIBEMS from the [facility] for evaluation s/p fall on 11/01. Patient was found to be intoxicated in ER, stated that EMS was summoned, found that his BP was low and was brought in. Pt is relatively better No SOB NO Chest pain No abd pain - Current Medication List Current Medications: Active Medications Aspirin (Asa -) 81 mg PO DAILY [facility] Last Admin: 11/04/18 09:17 Dose: 81 mg Carvedilol (Coreg -) 6.25 mg PO BID [facility] Last Admin: 11/04/18 09:18 Dose: 6.25 mg Cholecalciferol (Vitamin D3 -) 2,000 unit PO DAILY [facility] Last Admin: 11/04/18 09:18 Dose: 2,000 unit Cinacalcet (Sensipar -) 60 mg PO DAILY [facility] Last Admin: 11/04/18 09:19 Dose: 60 mg Folic Acid (Folic Acid -) 1 mg PO DAILY [facility] Last Admin: 11/04/18 09:18 Dose: 1 mg Heparin Sodium (Porcine) (Heparin -) 5,000 unit SQ BID [facility] Last Admin: 11/04/18 09:20 Dose: 5,000 unit Insulin Aspart (Novolog Vial Sliding Scale -) 1 vial SQ ACHS [facility]; Protocol Last Admin: 11/04/18 16:45 Dose: Not Given Insulin Detemir (Levemir Vial) 55 units SQ AM [facility] Last Admin: 11/04/18 06:41 Dose: 55 units Lorazepam (Ativan Injection -) 2 mg IVPUSH TID PRN PRN Reason: ANXIETY Last Admin: 11/02/18 06:35 Dose: 2 mg Meclizine HCl (Antivert -) 25 mg PO TID [facility] Last Admin: 11/04/18 13:21 Dose: Not Given Multivitamins/Minerals/Vitamin C (Tab-A-Vit -) 1 tab PO DAILY [facility] Last Admin: 11/04/18 09:18 Dose: 1 tab Tamsulosin HCl (Flomax -) 0.4 mg PO DAILY@2100 [facility] Last Admin: 11/03/18 20:17 Dose: 0.4 mg Thiamine HCl (Vitamin B1 -) 100 mg PO DAILY [facility] Last Admin: 11/04/18 09:20 Dose: 100 mg - Objective Vital Signs: Vital Signs Temperature 97.6 F 11/04/18 09:14 Pulse Rate 68 11/04/18 09:14 Respiratory Rate 17 11/04/18 09:14 Blood Pressure 128/85 11/04/18 09:14 O2 Sat by Pulse Oximetry (%) 96 11/04/18 09:00 Constitutional: Yes: No Distress Eyes: Yes: Conjunctiva Clear, EOM Intact HENT: Yes: Atraumatic, Normocephalic Neck: Yes: Supple, Trachea Midline Cardiovascular: Yes: Regular Rate and Rhythm, S1, S2 Respiratory: Yes: Regular, CTA Bilaterally Gastrointestinal: Yes: Normal Bowel Sounds, Soft Edema: No Peripheral Pulses WNL: Yes Neurological: Yes: Alert, Oriented, Cran Nerves II-XII Intact Labs: CBC, BMP 11/03/18 07:10 11/04/18 07:00 INR, PTT INR 1.04 (0.83-1.09) 11/02/18 00:30 Problem List - Problems (1) Diabetes Code(s): E11.9 - TYPE 2 DIABETES MELLITUS WITHOUT COMPLICATIONS Qualifiers: Diabetes mellitus type: type 2 Chronic kidney disease stage: stage 2 (mild ) (2) Hypotension Code(s): I95.9 - HYPOTENSION, UNSPECIFIED Qualifiers: Hypotension type: idiopathic hypotension Qualified Code(s): I95.0 - Idiopathic hypotension (3) Peripheral vertigo Code(s): H81.399 - OTHER PERIPHERAL VERTIGO, UNSPECIFIED EAR (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CIFIED Assessment/Plan (1) Diabetes Code(s): E11.9 - TYPE 2 DIABETES MELLITUS WITHOUT COMPLICATIONS Qualifiers: Diabetes mellitus type: type 2 Chronic kidney disease stage: stage 2 (mild ) (2) Hypotension Code(s): I95.9 - HYPOTENSION, UNSPECIFIED Qualifiers: Hypotension type: idiopathic hypotension Qualified Code(s): I95.0 - Idiopathic hypotension (3) Peripheral vertigo Code(s): H81.399 - OTHER PERIPHERAL VERTIGO, UNSPECIFIED EAR (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
[2018-11-04] MEDS: TAMSULOSIN HCL 0.4 MG CAP PO SCH (20:18)
[2018-11-05] MEDS: INSULIN (LEVEMIR) 100 UNITS/ML UNITS SQ SCH (06:28)
[2018-11-05] MEDS: INSULIN SLIDING SCALE (NOVOLOG) 1 VIAL SQ SCH ×4 (06:28→22:10)
[2018-11-05] MEDS: MECLIZINE HCL 25 MG TABLET (FP) PO SCH ×3 (06:28→22:10)
[2018-11-05 07:40] LABS: BILIRUBIN,TOTAL 0.9 mg/dL (0.2-1); BLOOD UREA NITROGEN 25.9 mg/dL (7-18); CALCIUM 10.6 mg/dL (8.5-10.1); CREATININE 1.6 mg/dL (0.55-1.3); POTASSIUM 4.5 mmol/L (3.5-5.1); TOT PROT 7.7 g/dl (6.4-8.2)
[2018-11-05] MEDS: ASPIRIN 81 MG CHEWABLE TABLETS PO SCH (10:20)
[2018-11-05] MEDS: MULTIVITAMINS (DAILY MVI) TABLET (FP) PO SCH (10:20)
[2018-11-05] MEDS: FOLIC ACID 1 MG TABLET (FP) PO SCH (10:20)
[2018-11-05] MEDS: CARVEDILOL 6.25 MG TABLET (FP) PO SCH ×2 (10:20→22:10)
[2018-11-05] MEDS: CHOLECALCIFEROL (VIT D3) 1,000 UNIT (25 MCG) TABLET PO SCH (10:20)
[2018-11-05] MEDS: HEPARIN NA (PORCINE) 5,000 UNITS/ML 1ML VIAL SQ SCH ×2 (10:21→22:10)
[2018-11-05] MEDS: THIAMINE HCL 100 MG TABLET (FP) PO SCH (10:22)
[2018-11-05] MEDS: CINACALCET HCL 30 MG TAB (FP) PO SCH (10:24)
--- NOTE | 2018-11-05 10:57 | PN ---
Progress Note (short form) - Note Progress Note: pt seen/ examined chart reviewed feels better no complains Vital Signs Temp 98 F 11/05/18 06:00 Pulse 70 11/05/18 06:00 Resp 18 11/05/18 06:00 BP 122/76 11/05/18 06:00 Pulse Ox 97 11/04/18 21:00 Intake & Output 11/04/18 11/04/18 11/05/18 11:59 23:59 11:59 Intake Total 790 500 Output Total 1350 1200 1000 Balance -560 -700 -1000 Weight 226 lb 222 lb Intake: IV 550 500 1/2 Normal Saline 1,000 550 500 ml @ 50 mls/hr IV ASDIR [facility] Rx#:[id number] Oral 240 Output: Urine 1350 1200 1000 Void 1350 1200 1000 Other: Voiding Method Urinal Urinal Bowel Movement No No No Weight Measurement Method Built in Bedscale Built in Bedscale Active Medications Aspirin (Asa -) 81 mg PO DAILY [facility] Last Admin: 11/05/18 10:20 Dose: 81 mg Carvedilol (Coreg -) 6.25 mg PO BID [facility] Last Admin: 11/05/18 10:20 Dose: 6.25 mg Cholecalciferol (Vitamin D3 -) 2,000 unit PO DAILY [facility] Last Admin: 11/05/18 10:20 Dose: 2,000 unit Cinacalcet (Sensipar -) 60 mg PO DAILY [facility] Last Admin: 11/05/18 10:24 Dose: Not Given Folic Acid (Folic Acid -) 1 mg PO DAILY [facility] Last Admin: 11/05/18 10:20 Dose: 1 mg Heparin Sodium (Porcine) (Heparin -) 5,000 unit SQ BID [facility] Last Admin: 11/05/18 10:21 Dose: 5,000 unit Insulin Aspart (Novolog Vial Sliding Scale -) 1 vial SQ [facility]; Protocol Last Admin: 11/05/18 06:28 Dose: Not Given Insulin Detemir (Levemir Vial) 55 units SQ AM [facility] Last Admin: 11/05/18 06:28 Dose: 55 units Meclizine HCl (Antivert -) 25 mg PO TID [facility] Last Admin: 11/05/18 06:28 Dose: 25 mg Multivitamins/Minerals/Vitamin C (Tab-A-Vit -) 1 tab PO DAILY [facility] Last Admin: 11/05/18 10:20 Dose: 1 tab Tamsulosin HCl (Flomax -) 0.4 mg PO DAILY@2100 [facility] Last Admin: 11/04/18 20:18 Dose: 0.4 mg Thiamine HCl (Vitamin B1 -) 100 mg PO DAILY [facility] Last Admin: 11/05/18 10:22 Dose: 100 mg CBC, BMP 11/03/18 07:10 11/05/18 06:25 Physical Exam S1 S2 RRR Lungs -- clear Abd - soft, NT Ext- no edema Neuro- alert/ awake No shaking a/p better alcohol cessation counselling monitor labs daily oob - chair pt monitor today if stable- anticipate d/c tomorrow will follow Problem List - Problems (1) [place] (acute kidney injury) Code(s): N17.9 - ACUTE KIDNEY FAILURE, UNSPECIFIED (2) Alcohol intoxication Code(s): F10.929 - ALCOHOL USE, UNSPECIFIED WITH INTOXICATION, UNSPECIFIED (3) Hypercalcemia Code(s): E83.52 - HYPERCALCEMIA (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
[2018-11-05] MEDS: POLYETHYLENE GLYCOL 3350 119 GM BTL PO SCH (13:26)
--- NOTE | 2018-11-05 16:36 | PN ---
Progress Note, Physician History of Present Illness: Pt seen and examined at bedside. He is awake and alert. He denies shortness of breath. He denies dysuria. - Current Medication List Current Medications: Active Medications Aspirin (Asa -) 81 mg PO DAILY [facility] Last Admin: 11/05/18 10:20 Dose: 81 mg Carvedilol (Coreg -) 6.25 mg PO BID [facility] Last Admin: 11/05/18 10:20 Dose: 6.25 mg Cholecalciferol (Vitamin D3 -) 2,000 unit PO DAILY [facility] Last Admin: 11/05/18 10:20 Dose: 2,000 unit Cinacalcet (Sensipar -) 60 mg PO DAILY [facility] Last Admin: 11/05/18 10:24 Dose: Not Given Folic Acid (Folic Acid -) 1 mg PO DAILY [facility] Last Admin: 11/05/18 10:20 Dose: 1 mg Heparin Sodium (Porcine) (Heparin -) 5,000 unit SQ BID [facility] Last Admin: 11/05/18 10:21 Dose: 5,000 unit Insulin Aspart (Novolog Vial Sliding Scale -) 1 vial SQ ACHS [facility]; Protocol Last Admin: 11/05/18 12:04 Dose: 2 units Insulin Detemir (Levemir Vial) 55 units SQ AM [facility] Last Admin: 11/05/18 06:28 Dose: 55 units Meclizine HCl (Antivert -) 25 mg PO TID [facility] Last Admin: 11/05/18 13:27 Dose: Not Given Multivitamins/Minerals/Vitamin C (Tab-A-Vit -) 1 tab PO DAILY [facility] Last Admin: 11/05/18 10:20 Dose: 1 tab Polyethylene Glycol (Miralax (For Daily Use) -) 17 gm PO DAILY [facility] Last Admin: 11/05/18 13:26 Dose: 17 grams Tamsulosin HCl (Flomax -) 0.4 mg PO DAILY@2100 [facility] Last Admin: 11/04/18 20:18 Dose: 0.4 mg Thiamine HCl (Vitamin B1 -) 100 mg PO DAILY [facility] Last Admin: 11/05/18 10:22 Dose: 100 mg - Objective Vital Signs: Vital Signs Temperature 96.3 F L 11/05/18 12:00 Pulse Rate 80 11/05/18 12:00 Respiratory Rate 18 11/05/18 12:00 Blood Pressure 119/77 11/05/18 12:00 O2 Sat by Pulse Oximetry (%) 98 11/05/18 09:00 Constitutional: Yes: Calm Eyes: Yes: Conjunctiva Clear HENT: Yes: Atraumatic Cardiovascular: Yes: S1, S2 Respiratory: Yes: CTA Bilaterally Gastrointestinal: Yes: Soft Genitourinary: Yes: WNL Musculoskeletal: Yes: WNL Edema: No Neurological: Yes: Oriented Psychiatric: Yes: Oriented Labs: CBC, BMP 11/03/18 07:10 11/05/18 06:25 INR, PTT INR 1.04 (0.83-1.09) 11/02/18 00:30 Problem List - Problems (1) [place] (acute kidney injury) Code(s): N17.9 - ACUTE KIDNEY FAILURE, UNSPECIFIED (2) Alcohol intoxication Code(s): F10.929 - ALCOHOL USE, UNSPECIFIED WITH INTOXICATION, UNSPECIFIED Assessment/Plan Current Medications Generic Name Dose Route Start Last Admin Trade Name Freq PRN Reason Stop Dose Admin Aspirin 81 mg 11/02/18 10:00 11/05/18 10:20 Asa - PO 81 mg DAILY [facility] Administration Carvedilol 6.25 mg 11/02/18 10:00 11/05/18 10:20 Coreg - PO 6.25 mg BID [facility] Administration Cholecalciferol 2,000 unit 11/04/18 10:00 11/05/18 10:20 Vitamin D3 - PO 2,000 unit DAILY [facility] Administration Cinacalcet 60 mg 11/02/18 10:00 11/05/18 10:24 Sensipar - PO Not Given DAILY [facility] Folic Acid 1 mg 11/02/18 10:00 11/05/18 10:20 Folic Acid - PO 1 mg DAILY [facility] Administration Heparin Sodium (Porcine) 5,000 unit 11/02/18 10:00 11/05/18 10:21 Heparin - SQ 5,000 unit BID [facility] Administration Insulin Aspart 1 vial 11/02/18 07:00 11/05/18 12:04 Novolog Vial Sliding Scale - SQ 2 units ACHS [facility] Administration Protocol Insulin Detemir 55 units 11/02/18 07:00 11/05/18 06:28 Levemir Vial SQ 55 units AM [facility] Administration Meclizine HCl 25 mg 11/02/18 06:00 11/05/18 13:27 Antivert - PO Not Given TID [facility] Multivitamins/Minerals/Vitamin C 1 tab 11/04/18 10:00 11/05/18 10:20 Tab-A-Vit - PO 1 tab DAILY [facility] Administration Polyethylene Glycol 17 gm 11/05/18 11:30 11/05/18 13:26 Miralax (For Daily Use) - PO 17 grams DAILY [facility] Administration Tamsulosin HCl 0.4 mg 11/03/18 21:00 11/04/18 20:18 Flomax - PO 0.4 mg DAILY@2100 [facility] Administration Thiamine HCl 100 mg 11/02/18 10:00 11/05/18 10:22 Vitamin B1 - PO 100 mg DAILY [facility] Administration Impression 1. [place] 2. hyperparathyroidism 3. htn 4. elevated pvr 5. prostate cancer 6. etoh abuse 7. s/p fall 8. hyperkalemia Plan - check bladder scan with pvr - pt on flomax - will need renal workup after discharge - I also recommend that he follows with his urologist - avoid alcohol
[2018-11-05] MEDS: TAMSULOSIN HCL 0.4 MG CAP PO SCH (22:09)
[2018-11-06] MEDS: INSULIN (LEVEMIR) 100 UNITS/ML UNITS SQ SCH (06:30)
[2018-11-06] MEDS: MECLIZINE HCL 25 MG TABLET (FP) PO SCH ×2 (06:30→13:27)
[2018-11-06] MEDS: INSULIN SLIDING SCALE (NOVOLOG) 1 VIAL SQ SCH ×3 (06:30→17:02)
[2018-11-06] MEDS ORDERED: INSULIN (NOVOLOG) ASPART 100 UNITS/ML 10ML VIAL ONE (06:36)
[2018-11-06 07:27] LABS: BASO % 0.9 % (0-2.0); EOS % 3.7 % (0-4.5); HEMATOCRIT 35.6 % (35.4-49); HEMOGLOBIN 11.5 GM/dL (11.7-16.9); MCH 23.4 pg (25.7-33.7); MCHC 32.4 g/dl (32.0-35.9); MEAN CELL VOLUME 72.2 fl (80-96); NEUT % 40.4 % (42.8-82.8); PLATELET COUNT 192 K/MM3 (134-434); RBC 4.93 M/mm3 (4.00-5.60); RDW 16.1 % (11.9-15.9); WHITE BLOOD COUNT 5.2 K/mm3 (4.0-10.0)
[2018-11-06 08:40] LABS: ALBUMIN 3.7 g/dl (3.4-5.0); BILIRUBIN,TOTAL 0.2 mg/dL (0.2-1); BLOOD UREA NITROGEN 28.8 mg/dL (7-18); CALCIUM 10.2 mg/dL (8.5-10.1); CREATININE 1.5 mg/dL (0.55-1.3); POTASSIUM 4.2 mmol/L (3.5-5.1); TOT PROT 6.9 g/dl (6.4-8.2)
[2018-11-06] MEDS: HEPARIN NA (PORCINE) 5,000 UNITS/ML 1ML VIAL SQ SCH (09:28)
[2018-11-06] MEDS: CARVEDILOL 6.25 MG TABLET (FP) PO SCH (09:28)
[2018-11-06] MEDS: MULTIVITAMINS (DAILY MVI) TABLET (FP) PO SCH (09:28)
[2018-11-06] MEDS: ASPIRIN 81 MG CHEWABLE TABLETS PO SCH (09:28)
[2018-11-06] MEDS: CHOLECALCIFEROL (VIT D3) 1,000 UNIT (25 MCG) TABLET PO SCH (09:28)
[2018-11-06] MEDS: FOLIC ACID 1 MG TABLET (FP) PO SCH (09:29)
[2018-11-06] MEDS: THIAMINE HCL 100 MG TABLET (FP) PO SCH (09:29)
[2018-11-06] MEDS: CINACALCET HCL 30 MG TAB (FP) PO SCH (09:29)
[2018-11-06] MEDS: POLYETHYLENE GLYCOL 3350 119 GM BTL PO SCH (09:31)
--- NOTE | 2018-11-06 10:14 | DS ---
Physical Examination Vital Signs: Vital Signs Temperature 98.5 F 11/06/18 05:57 Pulse Rate 73 11/06/18 05:57 Respiratory Rate 21 H 11/06/18 05:57 Blood Pressure 109/77 11/06/18 05:57 O2 Sat by Pulse Oximetry (%) 98 11/05/18 21:00 Findings/Remarks: patient feels well No complaints Wants to go back Denies chest pain or shortness of breath or abdominal pain alert and awake Constitutional: Yes: No Distress, Calm Eyes: Yes: Conjunctiva Clear Neck: Yes: Supple Cardiovascular: Yes: Regular Rate and Rhythm Respiratory: Yes: CTA Bilaterally Gastrointestinal: Yes: Normal Bowel Sounds, Soft Edema: No Neurological: Yes: WNL, Alert Psychiatric: Yes: Alert Labs: CBC, BMP 11/06/18 06:05 11/06/18 06:05 Discharge Summary Reason For Visit: ACUTE KIDNEY INJURY,ALCOHOL INTOXICATION, Current Active Problems [place] (acute kidney injury) (Acute) Alcohol intoxication (Acute) Hypercalcemia (Acute) Hyperparathyroid bone disease (Acute) Hospital Course: 68 year old male BIBEMS from the [facility] for [facility] for evaluation s/p fall on 11/01. Patient was found to be intoxicated Patient treated with fluids/ alcohol protocol much better alcohol cessation counseling provided patient to follow with His PMD for his regular medical follow-up Medications reconciled Discontinue metformin----as creatinine is borderline elevated Monitor renal function also Discussed with nursing staff Discharge today Condition: Improved - Instructions Disposition: [facility] - Home Medications Comprehensive Discharge Medication List: Ambulatory Orders Ammonium Lactate Lotion [Lac-Hydrin 12] 1 applic TP [facility]IR 09/12/16 Aspirin [ASA -] 81 mg PO DAILY 09/12/16 Carvedilol [Coreg] 6.25 mg PO BID 09/12/16 Cinacalcet HCl [Sensipar] 60 mg PO DAILY 09/12/16 Fluticasone Prop 0.05% Nasal [Flonase -] 1 - 2 spray NS BID 09/12/16 Insulin Glargine,Hum.rec.anlog [Lantus Solostar PEN -] 55 units SQ AM 09/12/16 Insulin Lispro [Humalog Kwikpen U-100] 20 unit SQ TID 09/12/16 Meclizine HCl [Antivert -] 25 mg PO TID 09/12/16 Multivit-Min/FA/Lycopen/Lutein [[facility] Multivit Caplet] 1 each PO DAILY 09/12/16 Polyethylene Glycol 3350 [Miralax 119 gm Btl -] 17 gm PO BID 09/12/16 Lisinopril 10 mg PO DAILY #30 tablet 09/14/16 Folic Acid - 1 mg PO DAILY tablet 11/06/18 Tamsulosin HCl [Flomax -] 0.4 mg PO DAILY@2100 cap.er.24h 11/06/18 Thiamine HCl [Vitamin B1 -] 100 mg PO DAILY tablet 11/06/18
[2018-11-06 13:44] VITALS: BP 112/75; PULSE 75; TEMP 99.3
--- NOTE | 2018-11-06 14:42 | PN ---
Progress Note, Physician History of Present Illness: Pt seen and examined at bedside. He is awake and alert. He denies shortness of breath. He denies dysuria. - Current Medication List Current Medications: Active Medications Aspirin (Asa -) 81 mg PO DAILY [facility] Last Admin: 11/06/18 09:28 Dose: 81 mg Carvedilol (Coreg -) 6.25 mg PO BID [facility] Last Admin: 11/06/18 09:28 Dose: 6.25 mg Cholecalciferol (Vitamin D3 -) 2,000 unit PO DAILY [facility] Last Admin: 11/06/18 09:28 Dose: 2,000 unit Cinacalcet (Sensipar -) 60 mg PO DAILY [facility] Last Admin: 11/06/18 09:29 Dose: Not Given Folic Acid (Folic Acid -) 1 mg PO DAILY [facility] Last Admin: 11/06/18 09:29 Dose: 1 mg Heparin Sodium (Porcine) (Heparin -) 5,000 unit SQ BID [facility] Last Admin: 11/06/18 09:28 Dose: 5,000 unit Insulin Aspart (Novolog Vial Sliding Scale -) 1 vial SQ ACHS [facility]; Protocol Last Admin: 11/06/18 11:22 Dose: Not Given Insulin Detemir (Levemir Vial) 55 units SQ AM [facility] Last Admin: 11/06/18 06:30 Dose: 55 units Meclizine HCl (Antivert -) 25 mg PO TID [facility] Last Admin: 11/06/18 13:27 Dose: Not Given Multivitamins/Minerals/Vitamin C (Tab-A-Vit -) 1 tab PO DAILY [facility] Last Admin: 11/06/18 09:28 Dose: 1 tab Polyethylene Glycol (Miralax (For Daily Use) -) 17 gm PO DAILY [facility] Last Admin: 11/06/18 09:31 Dose: 17 grams Tamsulosin HCl (Flomax -) 0.4 mg PO DAILY@2100 [facility] Last Admin: 11/05/18 22:09 Dose: 0.4 mg Thiamine HCl (Vitamin B1 -) 100 mg PO DAILY [facility] Last Admin: 11/06/18 09:29 Dose: 100 mg - Objective Vital Signs: Vital Signs Temperature 99.3 F 11/06/18 11:05 Pulse Rate 75 11/06/18 11:05 Respiratory Rate 20 11/06/18 11:05 Blood Pressure 112/75 11/06/18 11:05 O2 Sat by Pulse Oximetry (%) 98 11/06/18 09:00 Constitutional: Yes: Calm Eyes: Yes: Conjunctiva Clear HENT: Yes: Atraumatic Neck: Yes: Supple Cardiovascular: Yes: S1, S2 Respiratory: Yes: CTA Bilaterally Gastrointestinal: Yes: Soft Genitourinary: Yes: WNL Musculoskeletal: Yes: WNL Edema: No Neurological: Yes: Oriented Psychiatric: Yes: Oriented Labs: CBC, BMP 11/06/18 06:05 11/06/18 06:05 INR, PTT INR 1.04 (0.83-1.09) 11/02/18 00:30 Problem List - Problems (1) [place] (acute kidney injury) Code(s): N17.9 - ACUTE KIDNEY FAILURE, UNSPECIFIED (2) Alcohol intoxication Code(s): F10.929 - ALCOHOL USE, UNSPECIFIED WITH INTOXICATION, UNSPECIFIED Assessment/Plan Current Medications Generic Name Dose Route Start Last Admin Trade Name Freq PRN Reason Stop Dose Admin Aspirin 81 mg 11/02/18 10:00 11/06/18 09:28 Asa - PO 81 mg DAILY [facility] Administration Carvedilol 6.25 mg 11/02/18 10:00 11/06/18 09:28 Coreg - PO 6.25 mg BID [facility] Administration Cholecalciferol 2,000 unit 11/04/18 10:00 11/06/18 09:28 Vitamin D3 - PO 2,000 unit DAILY [facility] Administration Cinacalcet 60 mg 11/02/18 10:00 11/06/18 09:29 Sensipar - PO Not Given DAILY [facility] Folic Acid 1 mg 11/02/18 10:00 11/06/18 09:29 Folic Acid - PO 1 mg DAILY [facility] Administration Heparin Sodium (Porcine) 5,000 unit 11/02/18 10:00 11/06/18 09:28 Heparin - SQ 5,000 unit BID [facility] Administration Insulin Aspart 1 vial 11/02/18 07:00 11/06/18 11:22 Novolog Vial Sliding Scale - SQ Not Given ACHS [facility] Protocol Insulin Detemir 55 units 11/02/18 07:00 11/06/18 06:30 Levemir Vial SQ 55 units AM [facility] Administration Meclizine HCl 25 mg 11/02/18 06:00 11/06/18 13:27 Antivert - PO Not Given TID [facility] Multivitamins/Minerals/Vitamin C 1 tab 11/04/18 10:00 11/06/18 09:28 Tab-A-Vit - PO 1 tab DAILY [facility] Administration Polyethylene Glycol 17 gm 11/05/18 11:30 11/06/18 09:31 Miralax (For Daily Use) - PO 17 grams DAILY [facility] Administration Tamsulosin HCl 0.4 mg 11/03/18 21:00 11/05/18 22:09 Flomax - PO 0.4 mg DAILY@2100 [facility] Administration Thiamine HCl 100 mg 11/02/18 10:00 11/06/18 09:29 Vitamin B1 - PO 100 mg DAILY [facility] Administration Impression 1. [place] 2. hyperparathyroidism 3. htn 4. elevated pvr 5. prostate cancer 6. etoh abuse 7. s/p fall 8. hyperkalemia Plan - pvr 46 cc - cont flomax - pt will follow with his urologist after discharge, he is aware of the bladder u/s findings - will see in office for ckd workup - avoid alcohol
== END 2018-11-06 17:54 | disposition home or self-care (01) | DRG 684 ==
LOC: JER 23:28 → JERBED 11-02 01:23 → J6S 11-02 04:38
PROVIDERS: ADMIT Internal Medicine; ATTEND Internal Medicine
DX: N17.9 Acute kidney failure, unspecified (principal); E21.3 Hyperparathyroidism, unspecified; F10.129 Alcohol abuse with intoxication, unspecified; Z87.891 Personal history of nicotine dependence; Z79.4 Long term (current) use of insulin; Z79.84 Long term (current) use of oral hypoglycemic drugs; E11.9 Type 2 diabetes mellitus without complications; Z86.73 Personal history of transient ischemic attack (TIA), and cerebral infarction without residual deficits; E78.5 Hyperlipidemia, unspecified; E66.9 Obesity, unspecified; Z68.30 Body mass index [BMI] 30.0-30.9, adult; Z85.46 Personal history of malignant neoplasm of prostate; I25.10 Atherosclerotic heart disease of native coronary artery without angina pectoris; H81.399 Other peripheral vertigo, unspecified ear; E87.5 Hyperkalemia; I10 Essential (primary) hypertension
CPT/HCPCS: 36415; 70450-TC; 71045-TC-FY; 76775-TC; 76856-TC; 80048; 80051; 80053; 80307; 81003; 82436; 82550; 82553; 82565; 82962; 84133; 84300; 84484; 85025; 85610; 85730; 93005; 93010; 97116-GP; 97161-GP; 99284-25; J1644; J7030

== ENCOUNTER 2022-12-02 15:12 | Emergency (ER) | payer OTHER ==
[2022-12-02 15:33] VITALS: BMI 31.1
[2022-12-03 12:07] VITALS: BP 150/86; PULSE 78; RESP 18; TEMP 98.2
== END 2022-12-03 12:10 | disposition home or self-care (01) ==
LOC: JER 15:12
DX: S93.401A Sprain of unspecified ligament of right ankle, initial encounter (principal); W18.39XA Other fall on same level, initial encounter
CPT/HCPCS: 73590-TC-RT-FY; 73610-TC-RT-FY; 73630-TC-RT-FY; 99283-25

== ENCOUNTER 2023-08-21 15:34 | Inpatient (IN) | payer OTHER ==
[2023-08-21 17:30] LABS: BASO % 0.6 % (0-2.0); EOS % 3.3 % (0-4.5); HEMOGLOBIN 11.1 GM/dL (11.7-16.9); LYMPH % 31.2 % (8-40); MCH 22.8 pg (25.7-33.7); MCHC 31.7 g/dl (32.0-35.9); MEAN CELL VOLUME 71.8 fl (80-96); MEAN PLT VOLUME 8.6 fl (7.5-11.1); MONO % 10.8 % (3.8-10.2); NEUT % 54.1 % (42.8-82.8); PLATELET COUNT 166 10^3/uL (134-434); RBC 4.87 M/mm3 (4.00-5.60); RDW 15.6 % (11.9-15.9); WHITE BLOOD COUNT 4.4 K/mm3 (4.0-10.0)
[2023-08-21 17:36] LABS: INR 1.05 (0.83-1.09); PROTHROMBIN TIME (PATIENT) 11.9 SEC (9.7-13.0)
[2023-08-21 17:39] LABS: ACTIVATED PTT 32.4 SECONDS (25.2-36.5)
[2023-08-21 17:49] LABS: POTASSIUM 4.3 mmol/L (3.5-5.1)
[2023-08-21 17:51] LABS: CALCIUM 11.5 mg/dL (8.5-10.1)
[2023-08-21 17:52] LABS: ALBUMIN 3.6 g/dl (3.4-5.0); BLOOD UREA NITROGEN 33.6 mg/dL (7-18)
[2023-08-21 17:55] LABS: CREATININE 1.2 mg/dL (0.55-1.3)
[2023-08-21 17:56] LABS: BILIRUBIN,TOTAL 0.5 mg/dL (0.2-1); TOT PROT 6.7 g/dl (6.4-8.2)
[2023-08-21] MEDS ORDERED: ENOXAPARIN NA (PORCINE) 100 MG/1 ML DISP.SYRIN SQ ONE (18:53)
[2023-08-21] MEDS: ENOXAPARIN NA (PORCINE) 100 MG/1 ML DISP.SYRIN SQ ONE (18:57)
[2023-08-22 02:37] VITALS: BMI 30.1
[2023-08-22 08:04] LABS: BASO % 0.7 % (0-2.0); EOS % 4.7 % (0-4.5); HEMATOCRIT 35.2 % (35.4-49); HEMOGLOBIN 11.2 GM/dL (11.7-16.9); LYMPH % 38.8 % (8-40); MCH 22.9 pg (25.7-33.7); MCHC 31.9 g/dl (32.0-35.9); MEAN CELL VOLUME 71.7 fl (80-96); MEAN PLT VOLUME 9.2 fl (7.5-11.1); MONO % 9.3 % (3.8-10.2); NEUT % 46.5 % (42.8-82.8); PLATELET COUNT 170 10^3/uL (134-434); RBC 4.91 M/mm3 (4.00-5.60); RDW 15.8 % (11.9-15.9); WHITE BLOOD COUNT 3.6 K/mm3 (4.0-10.0)
[2023-08-22 08:17] LABS: INR 1.16 (0.83-1.09)
[2023-08-22 08:19] LABS: POTASSIUM 4.7 mmol/L (3.5-5.1)
[2023-08-22 08:44] LABS: BLOOD UREA NITROGEN 27.7 mg/dL (7-18)
[2023-08-22 08:45] LABS: PHOSPHOROUS 2.7 mg/dL (2.5-4.9)
[2023-08-22 08:47] LABS: ALBUMIN 3.5 g/dl (3.4-5.0); MAGNESIUM 1.6 mg/dL (1.8-2.4); TOT PROT 6.7 g/dl (6.4-8.2)
[2023-08-22 08:50] LABS: CREATININE 1.1 mg/dL (0.55-1.3)
[2023-08-22 08:54] LABS: BILIRUBIN,TOTAL 0.8 mg/dL (0.2-1)
[2023-08-22] MEDS: ENOXAPARIN NA (PORCINE) 100 MG/1 ML DISP.SYRIN SQ SCH (10:22)
[2023-08-22] MEDS: POLYETHYLENE GLYCOL (HEALTHYLAX) 3350 17 GM PACKET PO SCH (10:23)
[2023-08-22] MEDS: ASPIRIN 81 MG CHEWABLE TABLETS PO SCH (10:23)
[2023-08-22] MEDS: CARVEDILOL 6.25 MG TABLET (FP) PO SCH (10:23)
[2023-08-22] MEDS: LISINOPRIL 5 MG TABLET PO SCH (10:23)
[2023-08-22] MEDS: MULTIVITAMINS THER W-MINERALS COMBO TABLET (FP) PO SCH (10:23)
[2023-08-22] MEDS: ROSUVASTATIN CA 20 MG TABLET PO SCH (10:25)
[2023-08-22] MEDS ORDERED: INSULIN (NOVOLOG) ASPART 100 UNITS/ML 10ML VIAL ONE (11:29)
[2023-08-22] MEDS: INSULIN ASPART SLIDING SCALE (NOVOLOG) 1 VIAL SQ SCH (11:32)
[2023-08-22] MEDS: FLUTICASONE PROP 0.05% 16 GM NASAL SPRAY NS SCH (11:33)
[2023-08-22] MEDS: CINACALCET HCL 30 MG TAB (FP) PO SCH (11:34)
[2023-08-22] MEDS: FOLIC ACID 1 MG TABLET (FP) PO SCH (11:34)
[2023-08-22] MEDS: AMMONIUM LACTATE 12% LOTION 225 GM BOTTLE TP SCH (11:35)
[2023-08-22] MEDS: MECLIZINE HCL 25 MG TABLET (FP) PO SCH (14:30)
[2023-08-22 16:25] LABS: N-TERMINAL BNP 66.5 pg/ml (5-125)
[2023-08-22] MEDS: TAMSULOSIN HCL 0.4 MG CAP PO SCH (22:32)
[2023-08-23] MEDS: AMMONIUM LACTATE 12% LOTION 225 GM BOTTLE TP SCH (10:02)
[2023-08-23] MEDS: ROSUVASTATIN CA 20 MG TABLET PO SCH (10:03)
[2023-08-23] MEDS: APIXABAN 5 MG TABLET PO SCH ×2 (12:02→22:30)
[2023-08-23] MEDS: DOCUSATE SODIUM 100 MG CAPSULE (FP) PO SCH (22:30)
[2023-08-24 08:18] LABS: BASO % 0.6 % (0-2.0); EOS % 4.9 % (0-4.5); HEMOGLOBIN 11.3 GM/dL (11.7-16.9); LYMPH % 37.3 % (8-40); MCH 23.6 pg (25.7-33.7); MCHC 33.1 g/dl (32.0-35.9); MEAN CELL VOLUME 71.2 fl (80-96); MEAN PLT VOLUME 8.7 fl (7.5-11.1); MONO % 10.6 % (3.8-10.2); NEUT % 46.6 % (42.8-82.8); PLATELET COUNT 167 10^3/uL (134-434); RBC 4.77 M/mm3 (4.00-5.60); RDW 15.8 % (11.9-15.9); WHITE BLOOD COUNT 4.1 K/mm3 (4.0-10.0)
[2023-08-24 13:41] VITALS: BP 113/85; PULSE 71; RESP 22; TEMP 98.2
== END 2023-08-24 13:58 | DRG 176 ==
LOC: JER 15:34 → JERBED 21:58 → OBSVTOIN 22:39 → J4W 08-22 00:52 → UNDODISIN 08-22 21:58
PROVIDERS: ADMIT Student in an Organized Health Care Education/Training Program; ATTEND Internal Medicine
DX: I26.99 Other pulmonary embolism without acute cor pulmonale (principal); I65.09 Occlusion and stenosis of unspecified vertebral artery; E11.9 Type 2 diabetes mellitus without complications; E21.0 Primary hyperparathyroidism; E78.00 Pure hypercholesterolemia, unspecified; I10 Essential (primary) hypertension; E78.5 Hyperlipidemia, unspecified
CPT/HCPCS: 36415; 71275-TC; 72141-TC; 72146-TC; 72148-TC; 74177-TC; 80053; 80061; 82728; 82962; 83036; 83540; 83735; 83880; 84100; 84153; 84484; 85025; 85610; 85730; 87635; 93005; 93010; 93306-TC; 93970-TC; 97116-GP; 97162-GP; 99285-25; G0378; Q9967

== ENCOUNTER 2023-11-14 13:22 | Emergency (ER) | payer OTHER ==
[2023-11-14 15:32] VITALS: RESP 18; TEMP 97.9; BMI 29.8
[2023-11-14 21:59] VITALS: BP 129/87; PULSE 70
== END 2023-11-14 23:09 | disposition home or self-care (01) ==
LOC: JER 13:22
DX: S50.311A Abrasion of right elbow, initial encounter (principal); S09.90XA Unspecified injury of head, initial encounter; W01.198A Fall on same level from slipping, tripping and stumbling with subsequent striking against other object, initial encounter; Z86.711 Personal history of pulmonary embolism
CPT/HCPCS: 70450-TC; 99284-25

== ENCOUNTER 2024-01-22 04:37 | Day surgery (SDC) | payer OTHER ==
[2024-01-19 12:56] VITALS: BMI 29.2
[2024-01-22] MEDS ORDERED: DEXAMETHASONE SOD PHOSPHATE 4 MG/1 ML VIAL ONE (13:16)
[2024-01-22] MEDS ORDERED: LIDOCAINE HCL/PF 2% SDV 5ML VIAL ONE (13:16)
[2024-01-22] MEDS ORDERED: ONDANSETRON 4 MG/2 ML VIAL ONE (13:16)
[2024-01-22] MEDS ORDERED: PROPOFOL 40 ML ONE (13:16)
[2024-01-22] MEDS ORDERED: MIDAZOLAM HCL 2 MG/2 ML SINGLE DOSE VIAL ONE (13:17)
[2024-01-22] MEDS: ceFAZolin SODIUM 1 GM VIAL IVPB ONE (13:49)
[2024-01-22] MEDS ORDERED: PHENYLEPHRINE HCL 10 MG/1 ML SINGLE DOSE VIAL ONE ×2 (13:51)
[2024-01-22] MEDS ORDERED: ONDANSETRON 4 MG/2 ML VIAL IVPUSH PRN ×2 (14:07→14:31)
[2024-01-22] MEDS ORDERED: LACTATED RINGERS SOLUTION 1,000 ML IV SCH (14:15)
[2024-01-22] MEDS ORDERED: ELECTROLYTE-148 SOLN 1,000 ML IV SCH (14:30)
[2024-01-22] MEDS: LACTATED RINGERS SOLUTION 1,000 ML IV SCH (15:20)
[2024-01-22 15:44] VITALS: PULSE 72; RESP 16; TEMP 97.6
[2024-01-22 16:39] VITALS: BP 150/68
== END 2024-01-22 16:48 | disposition home or self-care (01) ==
LOC: JASU-SURG 04:37
PROVIDERS: ATTEND Urology
PROC: 0T7D8DZ Dilation of Urethra with Intraluminal Device, Via Natural or Artificial Opening Endoscopic (ICD-10-PCS; 2024-01-22)
PROC: 0T7D8DZ Dilation of Urethra with Intraluminal Device, Via Natural or Artificial Opening Endoscopic (ICD-10-PCS; principal; 2024-01-22 13:30)
DX: N40.1 Benign prostatic hyperplasia with lower urinary tract symptoms (principal); C61 Malignant neoplasm of prostate; R39.14 Feeling of incomplete bladder emptying
CPT/HCPCS: 82962; 94760; L8699